=== PATIENT | male | born 1955 | race Caucasian/White ===

== ENCOUNTER → 2019-09-07 15:38 | Outpatient (CLI) | payer OTHER, SELFPAY ==
--- NOTE | ~2019-09-07 | CT_ITS ---
EXAMINATION: CT brain wo con DATE: 09/07/2019 16:06 INDICATION: Left frontal scalp soft tissue mass. Left periorbital swelling. TECHNIQUE: Computed tomography (CT) of the head was performed without intravenous contrast. The mA wa s adjusted according to patient size. Iterative reconstruction technique was employed. The dose-lengt h product was 599.57 mGy-cm. COMPARISON: None FINDINGS: There is no intracranial hemorrhage, acute infarction, or abnormal intracranial mass lesion . The ventricles are normal in size. There is mild mucosal thickening in the ethmoid sinuses. There a re soft tissue masses in the left frontal lateral scalp, left periorbital region, left cheek, and ext raconal inferior and lateral left orbit. For example, a left temporal subcutaneous mass measures 4.5 x 1.1 x 5.0 cm. IMPRESSION: 1. Soft tissue masses in the left frontal lateral scalp, left periorbital region, left cheek, and lef t orbit. The differential diagnosis includes malignancy and fibromatosis. Biopsy is recommended. 2. Normal brain. Reviewed, dictated and finalized at location A. IMPRESSION: 1. Soft tissue masses in the left frontal lateral scalp, left periorbital regio n, left cheek, and left orbit. The differential diagnosis includes malignancy a nd fibromatosis. Biopsy is recommended. 2. Normal brain.
== END ==
PROVIDERS: PCP Internal Medicine; Visit Provider Internal Medicine
DX: M79.89 Other specified soft tissue disorders (principal)
CPT/HCPCS: 70450

== ENCOUNTER 2020-05-29 08:15 | Outpatient (CLI) | payer OTHER, SELFPAY ==
--- NOTE | 2020-07-03 09:34 | WPDHOMESLEEP ---
Sleep Study - Home Unattended Date of Study: 05/29/20 Ordering Provider: ALMAS Garcia Interpreting Physician: Adry Gómez MD [place] [facility] Study Type: Apnea Link Air Height: 1.7 m Weight: 145.603 kg Body Mass Index: 50.3 Neck Circumference (inches): 20 Ranger: 7 Reason for Sleep Study ROSEY Sleep History Macario Martin is a 64 year old man with obstructive sleep apnea diagnosed in 2001, and he has been using CPAP. He constantly snores loudly enough that others complain about it. He does not awaken at night with heartburn, belching or coughing. He occasionally awakens at night feeling short of breath. He occasionally has trouble sleep with a cold. He suddenly gasp for breath occasionally during the night. He occasionally has breathing problems at night reported to him by others. He occasionally sweats excessively at night. He does not notice his heart pounding or beating irregularly night. He occasionally falls asleep during the day, occasionally involuntarily, never while driving. He does not fall asleep during physical effort. He does not have loss of muscle tone with strong emotion. He does not have daytime difficulties due to excessive sleepiness. He does not feel paralyzed on waking or falling asleep. He rarely has vivid dreamlike scenes upon awakening or falling asleep. He is never afraid to go to sleep. He rarely has nightmares. He occasionally remembers his dreams, occasionally has racing thoughts. He does not feel sad depressed or anxious. He really has muscular tension, really notices parts of his body jerking. He rarely kicks at night. He does not have crawling and aching feelings in his legs at night. He rarely has leg pain during the night. He denies morning jaw pain. He rarely grinds his teeth during sleep. He is not bothered by pain during the day. He rarely is awakened by pain at night, rarely wakes up feeling stiff in the morning. He denies waking up with sore or achy muscles or pain in the neck and spine. He has nightmares. Normal bedtime is 9:00 p.m. falling asleep within 5 minutes waking up roughly 4 times at night to either urinate or just reposition. He quickly goes back to sleep. He wakes between 4 and 5:00 a.m.. He estimates 8 hours of sleep at night. We schedule is the same he denies taking naps. A short 10-15 min nap maybe refreshing. Most of the time he feels good in the morning. Habits:: Never smoked. Caffeine - 1 cup a day. Alcohol a couple times a week. 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 This study was scored using CMS guidelines. Sleep Architecture Not applicable for home sleep test. Respiratory Analysis The recording time was 8 hours 8 minutes. Evaluation time 7 hours 56 minutes. The apnea-hypopnea index is 4
[2020-07-03 09:47] VITALS: BMI 50.3
== END 2020-05-29 08:16 | disposition home or self-care (01) ==
PROVIDERS: PCP Internal Medicine; Visit Provider Nurse Practitioner
DX: G47.33 Obstructive sleep apnea (adult) (pediatric) (principal)
CPT/HCPCS: 95806

== ENCOUNTER → 2020-12-22 06:53 | Outpatient (CLI) | payer OTHER, SELFPAY ==
--- NOTE | ~2020-12-22 | XR_ITS ---
EXAMINATION: XR abdomen/kub 1V INDICATION: Personal history of urinary tract calculi TECHNIQUE: Supine view the abdomen is obtained on three radiographs. COMPARISON: 10/20/2010 FINDINGS: Surgical clips in the right mid abdomen are consistent with history of right nephrectomy. N o urinary tract calculi are identified. There is a phlebolith in the right pelvis. The bowel gas lita ramona is normal. The visualized lung bases are clear. IMPRESSION: 1. No urolithiasis identified. Reviewed, dictated and finalized at location B.
== END ==
PROVIDERS: Visit Provider Urology
DX: Z87.442 Personal history of urinary calculi (principal)
CPT/HCPCS: 74018

== ENCOUNTER 2021-03-09 00:55 | Day surgery (SDC) | payer OTHER, SELFPAY ==
[2021-02-25 14:34] VITALS: BMI 46.3
--- NOTE | 2021-03-09 07:47 | WPDANESEPPF ---
Anes - Initial Pre Proc Eval Procedure: Operation Date: 03/09/21 09:30 Proposed Procedures p Screening Colonoscopy - Surinder Obando MD Date/Time: 03/09/21 07:47 Surgeon: Surinder Obando MD Pre Op Diagnosis: neoplasm screening Patient Data Age: 65 Gender: M Height: 1.7 m Weight: 134 kg Allergies Allergy/AdvReac Type Severity Reaction Status Date / Time No Known Allergies Allergy Mild Verified 03/09/21 08:42 Home Medications Medication Instructions Recorded Confirmed Type potassium citrate 10 mEq (1,080 20 meq PO TID tablet 09/03/19 03/09/21 History mg) tablet,extended release clobetasol 0.05 % topical ointment 1 applic TOPICAL BID 14 Days #45 gm 10/08/20 03/09/21 Rx tamsulosin 0.4 mg PO HS 02/25/21 02/25/21 History Patient hx anesthesia problems: none Family hx anesthesia problems: none PMFSH Past Medical History Medical History (Updated 03/09/21 @ 07:49 by Giovanny Woods MD) Angina pectoris Dyslipidemia Kidney stones Mass of face marginal zone lymphoma Morbid obesity with BMI of 45.0-49.9, adult Obstructive sleep apnea (~2001) Family History Family History Mother Patient's mother is in good health Sibling Patient's sister is in good health Patient's brother is in good health Social History Social History Smoking packs per day: 0.25 Smoking cigarettes per day: 5.0 Years smoked: 15 Smoking pack-years: 3.75 Smoking status: Former smoker Tobacco type: cigarettes Second hand tobacco smoke exposure: No Smoking end date: 06/27/79 Alcohol intake: current Drinks per week: 5 Alcohol use details: Beer and Vodk mixed with water Substance use: never Living arrangements: with family 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 identity (if 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 patient): Male Spiritual care concerns: No Agree to blood products: Yes Anes - Eval Final PreProcedure Day of Procedure 03/09/21 07:47 Patient weight: morbidly obese Heart: regular rate and rhythm Lungs: clear to auscultation and normal air movement Airway: Mallampati scale class II Neurological: alert and oriented Last oral intake: >/= 8 hours ASA classification: III Emergent: no Anesthetic plan: proceed Anesthesia type and monitoring: general GIVS Informed Consent: The patient's anesthetic plan and its attendant risks and benefits were discussed with the patient/family/POA. Questions were solicited and answers provided to the satisfaction of the patient/family/POA.
[2021-03-09 08:44] VITALS: BP 146/81; PULSE 56; RESP 20; TEMP 36.3; O2SAT 97; BMI 46.6
[2021-03-09] MEDS: LACTATED RINGERS 1,000 ML 150 ML IV CONT (08:59)
--- NOTE | 2021-03-09 09:30 | PM.HPGS ---
History of Present Illness History of Present Illness Consent: Risks, benefits, and alternatives have been discussed and questions answered. Patient agrees to proceed with procedure. Chief complaint: neoplasm screening Narrative: Macario Martin is a 65 year old male with last colonoscopy over 10 years ago Review of Systems Constitutional: Constitutional: Denies headache(s) and Denies weakness Eyes: Eyes: Denies blurry vision ENT: Reports Normal hearing present, Denies headache(s) and Denies neck pain Cardiovascular: Cardiovascular: Denies chest pain and Denies dyspnea Respiratory: Respiratory: Denies dyspnea Gastrointestinal: Gastrointestinal: Reports no additional gastrointestinal complaints Genitourinary: Genitourinary: Denies dysuria Musculoskeletal: Musculoskeletal: Denies neck pain Integumentary/Breasts: Skin/Breast: Denies dry skin Neurologic: Reports Normal hearing present, Denies headache(s) and Denies weakness Psychiatric: Psychiatric: Denies anxiety Endocrine: Endocrine: Denies change in body appearance Hematologic/Lymphatic: Hematologic/Lymphatic: Denies easy bleeding Allergic/Immunologic: Allergic/Immunologic: Denies urticaria PMFSH Past Medical History Medical History (Updated 03/09/21 @ 07:49 by Giovanny Woods MD) Angina pectoris Dyslipidemia Kidney stones Mass of face marginal zone lymphoma Morbid obesity with BMI of 45.0-49.9, adult Obstructive sleep apnea (~2001) Family History Family History Mother Patient's mother is in good health Sibling Patient's sister is in good health Patient's brother is in good health Social History Social History Smoking packs per day: 0.25 Smoking cigarettes per day: 5.0 Years smoked: 15 Smoking pack-years: 3.75 Smoking status: Former smoker Tobacco type: cigarettes Second hand tobacco smoke exposure: No Smoking end date: 06/27/79 Alcohol intake: current Drinks per week: 5 Alcohol use details: Beer and Vodk mixed with water Substance use: never Living arrangements: with family 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 identity (if 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 patient): Male Spiritual care concerns: No Agree to blood products: Yes Meds Home Medications and Allergies Home Medications Medication Instructions Recorded Confirmed Type potassium citrate 10 mEq (1,080 20 meq PO TID tablet 09/03/19 03/09/21 History mg) tablet,extended release clobetasol 0.05 % topical ointment 1 applic TOPICAL BID 14 Days #45 gm 10/08/20 03/09/21 Rx tamsulosin 0.4 mg PO HS 02/25/21 02/25/21 History Allergies Allergy/AdvReac Type Severity Reaction Status Date / Time No Known Allergies Allergy Mild Verified 03/09/21 08:42 Vital Signs Vital Signs - 24 hr 03/09/21 08:44 Temperature 97.3 F L Pulse Rate 56 L Respiratory Rate 20 Blood Pressure 146/81 H Pulse Oximetry 97 Exam Const: General: comfortable and no acute distress HENMT: General nose exam: Normal nares present Eyes: General: appearance normal, both eyes and all related structures Neck: Neck: no JVD Resp: Auscultation: clear to auscultation bilaterally Cardio: Rate: regular rate Rhythm: regular rhythm GI: Inspection: non-distended GI Palp: Yes Soft to palpation Skin: General skin exam: normal color Neuro: General: gait normal Speech: normal speech Extrem: General: normal to inspection Psych: Mental Status: mental status grossly normal Assessment and Plan Assessment and plan (1) Screening for colon cancer: Code(s): Z12.11 - Encounter for screening for malignant neoplasm of colon Status: Acute Assessment and Plan: colonoscopy
[2021-03-09 09:59] VITALS: BP 118/83; PULSE 58; RESP 28; O2SAT 96
[2021-03-09 10:09] VITALS: BP 117/77; PULSE 55; RESP 27; O2SAT 98
[2021-03-09 10:19] VITALS: BP 126/81; PULSE 52; RESP 22; O2SAT 97
== END 2021-03-09 10:25 | disposition home or self-care (01) ==
PROVIDERS: PCP Internal Medicine; Visit Provider Internal Medicine Gastroenterology
PROC: 0DJD8ZZ Inspection of Lower Intestinal Tract, Via Natural or Artificial Opening Endoscopic (ICD-10-PCS; CPT 45378; principal; 2021-03-09 09:30)
DX: Z12.11 Encounter for screening for malignant neoplasm of colon (principal); D12.2 Benign neoplasm of ascending colon; D12.3 Benign neoplasm of transverse colon; K57.30 Diverticulosis of large intestine without perforation or abscess without bleeding; K64.8 Other hemorrhoids; E78.5 Hyperlipidemia, unspecified; E66.01 Morbid (severe) obesity due to excess calories; G47.33 Obstructive sleep apnea (adult) (pediatric); Z87.442 Personal history of urinary calculi; Z87.891 Personal history of nicotine dependence; Z85.72 Personal history of non-Hodgkin lymphomas
CPT/HCPCS: 45385; 88305; J2001; J2704; J7120

== ENCOUNTER → 2021-08-14 10:24 | Outpatient (CLI) | payer OTHER, SELFPAY ==
--- NOTE | ~2021-08-14 | XR_ITS ---
EXAMINATION: XR knee RT 3V DATE: 08/14/2021 10:59 INDICATION: Right knee pain TECHNIQUE: Three views of the right knee were obtained. COMPARISON: None. FINDINGS: Alignment is normal. No fracture or osteochondral lesion. There is severe narrowing in the medial compartment. Mild patellofemoral and lateral compartmental osteoarthritis are noted. No joint effusion/synovitis. Soft tissues are unremarkable. IMPRESSION: 1. Tricompartmental osteoarthritis, severe in the medial compartment. Reviewed, dictated and finalized at location A. ATION MANAGER
--- NOTE | ~2021-08-14 | XR_ITS ---
EXAMINATION: XR knee LT 3V DATE: 08/14/2021 10:59 INDICATION: Left knee pain TECHNIQUE: Three views of the left knee were obtained. COMPARISON: None. FINDINGS: Alignment is normal. No fracture or osteochondral lesion. There is moderate joint space seferino rowing of the medial compartment. Mild osteoarthritis is noted in the lateral and patellofemoral comp artments. No joint effusion/synovitis. Soft tissues are unremarkable. IMPRESSION: 1. Tricompartmental osteoarthritis, moderate in the medial compartment. Reviewed, dictated and finalized at location A. CE PATROL LIEUTENANT
== END ==
PROVIDERS: PCP Nurse Practitioner; Visit Provider Nurse Practitioner
DX: M25.561 Pain in right knee (principal); M25.562 Pain in left knee; M17.0 Bilateral primary osteoarthritis of knee
CPT/HCPCS: 73562

== ENCOUNTER 2021-10-09 07:20 | Outpatient (CLI) | payer OTHER, SELFPAY ==
--- NOTE | ~2021-10-09 | XR_ITS ---
EXAMINATION: XR chest 2V EXAM DATE: 10/09/2021 07:40 INDICATION: Prostate cancer. TECHNIQUE: Frontal and lateral projections of the chest obtained and reviewed. There is no prior gayle dy for comparison. FINDINGS: Several lung opacities which are most consistent with calcified pleural plaques along the upper lateral chest margins. No confluent consolidation, pneumothorax or pleural effusion suspected. Moderate size thoracic bridging endplate osteophytes, diffuse idiopathic skeletal hyperostosis. Cardi omediastinal silhouette is normal. There are no osteoblastic or osteolytic lesions identified. IMPRESSION: Probable calcified pleural plaques. Reviewed, dictated and finalized at location D.
--- NOTE | ~2021-10-09 | NM_ITS ---
EXAMINATION: NM bone scan whole body DATE: 10/09/2021 13:10 INDICATION: Prostate cancer. TECHNIQUE: 26.8 mCi Tc-99m HDP was administered intravenously. Delayed whole-body scintigrams were o btained. COMPARISON: CT abdomen and pelvis 10/09/2021 FINDINGS: There is joint-centered increased activity in the acromioclavicular joints, sternoclavicula r joints, spine, knees, and right foot, likely osteoarthritis. There is focal increased activity over lying right pelvis on the anterior images without abnormal CT correlate, likely urine contamination. IMPRESSION: 1. No specific evidence of metastatic disease. Reviewed, dictated and finalized at location A.
--- NOTE | ~2021-10-09 | CT_ITS ---
EXAMINATION: CT abdomen pelvis w con INDICATION: Prostate cancer TECHNIQUE: Computed tomographic images of the abdomen and pelvis were obtained after the administrati on of 100 cc of Omnipaque 350 intravenous contrast. The dose-length product (DLP) was 1540.25 mGy-cm. Automated exposure control and iterative reconstruction technique were employed. COMPARISON: 09/02/2016 FINDINGS: The lung bases are clear. The heart size is normal. Calcified pleural plaques are noted whi ch can be seen in the setting of prior asbestos exposure. The liver, spleen, pancreas, gallbladder, a nd adrenal glands are normal. There are surgical changes of right nephrectomy. There is a 3 mm nonobs tructing stone lower pole of the left kidney. There is mild lumbar spondylosis. The left kidney is otherwise unremarkable. No pathologically enlarged abdominal or pelvic lymph nodes are identified. Th ere is no free intraperitoneal gas or evidence of bowel obstruction. Colonic diverticulosis is presen t without evidence of diverticulitis. There is mild lumbar spondylosis. IMPRESSION: 1. No evidence of metastatic disease. Reviewed, dictated and finalized at location A.
[2021-10-09 07:53] LABS: Estimated Glomerular Filt Rate > 60
== END 2021-10-09 07:21 | disposition home or self-care (01) ==
PROVIDERS: PCP Internal Medicine; Visit Provider Urology
DX: C61 Malignant neoplasm of prostate (principal)
CPT/HCPCS: 71046; 74177; 78306; A9561; Q9967

== ENCOUNTER 2021-11-05 09:48 | Outpatient (CLI) | payer OTHER, SELFPAY ==
--- NOTE | ~2021-11-05 | XR_ITS ---
XR chest 2V DATE: 11/05/2021 11:14 INDICATION: Malignant neoplasm of prostate gland TECHNIQUE: PA and lateral views COMPARISON: 10/09/2021 PA and lateral chest FINDINGS: Heart size is within normal range. No hilar or mediastinal enlargement. Bilateral pleural p laques with calcifications suggesting prior asbestos exposure. No pulmonary infiltrate or consolidation, pleural effusion or pulmonary vascular congestion or pneumo thorax. Diffuse idiopathic skeletal hyperostosis of the thoracic spine. 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
--- NOTE | 2021-11-05 10:48 | ECG_ITS ---
Measurements Intervals [place] Rate: 52 P: 50 OK: 241 QRS: -72 QRSD: 161 T: -6 QT: 434 QTc: 407 Interpretive Statements SINUS BRADYCARDIA WITH FIRST DEGREE AV BLOCK LEFT AXIS DEVIATION RIGHT BUNDLE BRANCH BLOCK BASELINE ARTIFACT- I, II, AVR ABNORMAL ECG Electronically Signed On 11-05-2021 11:41:47 CDT by Shilo Galeana D.O.
[2021-11-05 11:17] LABS: Basophils Absolute Auto 0.1 K/mm3 (0.0-0.1); Basophils Percent Auto 0.6 % (0.2-1.2); Eosinophils Absolute Auto 0.1 K/mm3 (0-0.3); Eosinophils Percent Auto 0.7 % (0-4.4); Hematocrit 46.9 % (42.0-52.0); Hemoglobin 16.1 g/dL (14.0-18.0); Immature Granulocyte Absolute 0.05 K/mm3 (0.00-0.031); Immature Granulocyte Percent A 0.5 % (0-0.5); Lymphocytes Percent Auto 22.4 % (18.3-44.2); Mean Corpuscular HGB Conc 34.3 g/dl (32-36); Mean Corpuscular Hemoglobin 31.6 pg (26-34); Mean Corpuscular Volume 92.1 fl (80-100); Mean Platelet Volume 8.8 fl (7.4-10.4); Monocytes Absolute Auto 0.8 K/mm3 (0.1-0.6); Monocytes Percent Auto 8.3 % (2.6-8.5); Neutrophils Absolute Auto 6.3 K/mm3 (1.3-6.7); Neutrophils Percent Auto 67.5 % (45.5-73.1); Platelet Count Result 199 k/mm3 (150-375); Red Blood Count 5.09 M/mm3 (4.6-6.20); Red Cell Distribution Width 12.9 % (11.5-14.5); White Blood Count 9.4 K/mm3 (4.5-10.0)
[2021-11-05 11:21] LABS: Alanine Aminotransferase 21 U/L (6-50); Albumin Level 4.3 g/dL (3.5-5.1); Alkaline Phosphatase 63 U/L (38-126); Anion Gap 6 mmol/L (8-16); Aspartate Amino Transferase 29 U/L (17-59); Bilirubin,Total 0.8 mg/dL (0.2-1.3); Blood Urea Nitrogen 18 mg/dL (9-20); Calcium 8.9 mg/dL (8.4-10.2); Carbon Dioxide 30 mmol/L (22-30); Chloride 102 mmol/L (98-107); Estimated Glomerular Filt Rate > 60; Glucose 96 mg/dL (65-110); Potassium 4.3 mmol/L (3.4-5.0); Sodium 138 mmol/L (137-145)
[2021-11-05 11:29] LABS: INR 1.1; Prothrombin Time 13.9 Seconds (11.1-14.7)
[2021-11-05 11:30] LABS: Partial Thromboplastin Time 32.2 SECONDS (22.3-36.8)
[2021-11-05 11:37] LABS: Appearance Urine Clear (Clear); Bilirubin Urine 1+ (Negative); Blood Urine Negative (Negative); Glucose Urine UA Negative (Negative); Ketones Urine Negative (Negative); Leukocyte Esterase Ur Negative LEU/UL (Negative); Nitrate Urine Negative (Negative); Protein Urine Negative (Negative); Specific Grav Ur >= 1.030 (1.001-1.035)
[2021-11-05 11:38] LABS: Add Urine Microscopic? YES; Color Urine Dark Yellow (Yellow)
[2021-11-05 11:54] LABS: Mucus Urine Rare /lpf; RBC Urine 0-2 /hpf (0-2); Squamous Epithelial Cell Urine Rare /hpf (Few); WBC Urine 0-3 /hpf
== END 2021-11-05 09:49 | disposition home or self-care (01) ==
LOC: ANHSURGERY 09:51
PROVIDERS: PCP Internal Medicine; Visit Provider Urology
DX: C61 Malignant neoplasm of prostate (principal); Z01.818 Encounter for other preprocedural examination; M48.14 Ankylosing hyperostosis [Forestier], thoracic region; I44.0 Atrioventricular block, first degree; I45.10 Unspecified right bundle-branch block
CPT/HCPCS: 36415; 71046; 80053; 81001; 85025; 85610; 85730; 93005

== ENCOUNTER 2021-11-19 00:55 | Day surgery (SDC) | payer OTHER, SELFPAY ==
[2021-11-05 09:57] VITALS: BMI 47.4
--- NOTE | 2021-11-05 10:22 | PC.NURSE ---
Report to the Outpatient Waiting Room, entrance under the green pavilion located off [facility], at time __0600 on date _11/19/21 . OR Time: 729 . - You and your visitor will be asked a series of questions to screen for COVID 19 for your protection. - Only one visitor is allowed at this time. - The patient visitor is requested to leave or wait in car when not with patient. - A mask is required within the hospital. Patients may have clear liquids (water, carbonated beverages, clear teas, apple juice) until 3 hours prior to surgery with a maximum of 20 ounces. - No food from midnight until time of surgery - Infants may have breast milk until 4 hours before surgery, infant formula 6 hours prior to surgery. - Children will be allowed to drink immediately following surgery. If applicable, please bring a bottle or sippy cup to assist with drinking. Juice, water, soda, and popsicles are readily available. For infants on formula, please bring formula the day of surgery. Pacifiers are allowed. Take the following medications with a SIP of water the morning of surgery: ___NONE Medications to discontinue per physician __NONE Date to take last dose Please no make-up, nail afghan, hairspray, perfume, deodorant, or body powder the day of surgery. No jewelry (including any body piercings) or valuables the day of surgery, leave them at home. Please take a shower or bath the night before, or the morning of, surgery with an antibacterial soap. Wear comfortable, loose fitting clothing. Children are encouraged to wear pajamas. - Jewelry must be removed prior to entering the operating room. Rings and piercings that are not removed may be cut off. - The hospital will not accept responsibility for valuables. - Please leave all valuables, including medications, at home the day of surgery. BOWEL PREP PER DR VIDALES If you are going home after surgery, a licensed telephone directory distributor driver must drive you home. - NO public transportation without another adult. - We recommend that an adult stay with you for 24 hours following discharge. - We also recommend that you do not drive, make important decision, drink alcoholic beverages, or take any drugs that were not prescribed by your health care provider for at least 24 hours after your discharge time. . Follow any additional instructions given to you from your surgeon. If you or anyone in your household have experienced Covid symptoms in the past week, please notify your surgeon or the nurse liaison at the phone number below for possible testing. VERBAL AND WRITTEN instructions given to _PATIENT and asked if any additional questions and then verbalized understanding. Patient advised to call surgeon office or pre surgery nurse liaison [phone] if any additional questions.
[2021-11-05 10:48] VITALS: BP 142/77; PULSE 66; RESP 18; TEMP 36.7; O2SAT 98
--- NOTE | 2021-11-10 14:22 | PM.IMHP ---
H&P: HPI History of Present Illness Date/Time: 11/10/21 14:22 66-year-old gentleman recently referred with a PSA of 6.1. Prostate ultrasound and biopsy revealed a 35.3 cc prostate with 6 of 12 cores demonstrating Batsheva 6, 3+4=7 and 4+3=7 , some of which had intraductal components.. This is consistent with an end cc an unfavorable intermediate risk prostate cancer with intraductal components. Staging CT scan of the abdomen and pelvis, bone scan and chest x-ray showed no evidence of metastatic disease. I had a lengthy discussion with the patient regarding his therapeutic options for this prostate cancer which is essentially high risk because of the intraductal components. He has opted for definitive intervention and elected to proceed with a robotic prostatectomy he is aware that, because of his body size and habitus, we may not be able to proceed because the extreme Trendelenburg positioning necessary for this procedure. He is aware of additional risk including, but not limited to, adverse cardiopulmonary events, failure to control his cancer, need for adjuvant therapy, rectal injury, erectile dysfunction and urinary incontinence. Chief Complaint: Prostate cancer Review of Systems Cardiovascular: Cardiovascular: Denies chest pain, Denies lightheadedness, Denies palpitations and Denies dyspnea Respiratory: Respiratory: Denies dyspnea Gastrointestinal: Gastrointestinal: Denies diarrhea, Denies nausea and Denies vomiting Genitourinary: Genitourinary: Denies hematuria and Denies dysuria Endocrine: Endocrine: Denies palpitations PMF Past Medical History Medical History Angina pectoris Dyslipidemia Kidney stones Mass of face marginal zone lymphoma Morbid obesity with BMI of 45.0-49.9, adult Obstructive sleep apnea (~2001) Surgical History Surgical History History of right nephrectomy 2001 Family History Family History Mother Patient's mother is in good health Sibling Patient's sister is in good health Patient's brother is in good health Social History Social History Smoking packs per day: 0.25 Smoking cigarettes per day: 5.0 Years smoked: 15 Smoking pack-years: 3.75 Smoking status: Former smoker Tobacco type: cigarettes Second hand tobacco smoke exposure: No Smoking end date: 06/27/79 Alcohol intake: current Drinks per week: 5 Alcohol use details: Beer and Vodk mixed with water Substance use: never Substance use type: does not use 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 identity (if 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 patient): Male Spiritual care concerns: No Agree to blood products: Yes Meds Home Medications and Allergies Home Medications Medication Instructions Recorded Confirmed Type potassium citrate 10 mEq (1,080 20 meq PO TID tablet 09/03/19 11/05/21 History mg) tablet,extended release tamsulosin 0.4 mg PO HS 02/25/21 11/05/21 History clobetasol 0.05 % topical ointment 1 applic TOPICAL BID 14 Days #45 gm 04/20/21 11/05/21 Rx acetaminophen 650 mg 650 mg PO Q12H PRN 08/05/21 11/05/21 History tablet,extended release Allergies Allergy/AdvReac Type Severity Reaction Status Date / Time No Known Allergies Allergy Mild Verified 11/05/21 09:58 Exam Const: General: no acute distress; No healthy appearing Nutritional Appearance: body habitus not average and obese Resp: Effort & Inspection: normal respiratory effort GI: Inspection: non-distended GI Palp: No abdominal tenderness and No Guarding due to palpation present (GI) Auscultation: normal bowel sounds Assessment and Plan Assessment and plan (1) Prostate cancer: Code(s): C61 - Malignant neoplasm of prostate Status: Acute Additional Bartolo
[2021-11-19] VITALS (18 sets, daily range): BP systolic 114–154; BP diastolic 67–86; PULSE 63–91; RESP 12–23; TEMP 36–36.4; O2SAT 93–100
[2021-11-19] MEDS: LACTATED RINGERS 1,000 ML 30 ML IV CONT ×3 (06:25→13:16)
--- NOTE | 2021-11-19 06:29 | WPDHPUPDATE1 ---
History and Physical Update Update Date/Time: 11/19/21 06:29 History and Physical has been reviewed, including an updated exam of the patient. There are NO changes in the patient's condition. Risks, benefits, and alternatives have been discussed and questions answered. Patient agrees to proceed with procedure.
--- NOTE | 2021-11-19 06:54 | WPDANESEPPF ---
Anes - Initial Pre Proc Eval Procedure: Operation Date: 11/19/21 07:30 Proposed Procedures p Robotic Assisted Radical Prostatectomy with Bilateral Pelvic Lymph Node Dissection - Winston Cardona MD Date/Time: 11/19/21 06:54 Surgeon: Winston Cardona MD Pre Op Diagnosis: prostate cancer Patient Data Age: 66 Gender: M Height: 1.69 m Weight: 134.2 kg Last Vital Signs Temp 36.1 C L 11/19/21 06:02 Pulse 70 11/19/21 06:02 Resp 20 11/19/21 06:02 BP 137/76 11/19/21 06:02 Pulse Ox 96 11/19/21 06:02 O2 Del Method Room Air 11/19/21 06:02 Allergies Allergy/AdvReac Type Severity Reaction Status Date / Time No Known Allergies Allergy Mild Verified 11/05/21 09:58 Home Medications Medication Instructions Recorded Confirmed Type potassium citrate 10 mEq (1,080 20 meq PO TID 09/03/19 11/19/21 History mg) tablet,extended release tamsulosin 0.4 mg capsule 0.4 mg PO HS 02/25/21 11/19/21 History clobetasol 0.05 % topical ointment 1 applic topical BID 2 weeks #45 04/20/21 11/19/21 Rx grams acetaminophen 650 mg 650 mg PO Q12H PRN Pain 08/05/21 11/19/21 History tablet,extended release (Tylenol Arthritis Pain) Patient hx anesthesia problems: none Family hx anesthesia problems: none Results Review: All pre-operative results and documents have been reviewed as part of the pre-operative evaluation. [facility] Past Medical History Medical History (Updated 11/10/21 @ 14:26 by Winston Cardona MD) Angina pectoris Dyslipidemia Kidney stones Mass of face marginal zone lymphoma Morbid obesity with BMI of 45.0-49.9, adult Obstructive sleep apnea (~2001) Surgical History Surgical History (Updated 11/19/21 @ 06:55 by Doug Sarmiento MD) H/O lithotripsy History of right nephrectomy 2001 Family History Family History Mother Patient's mother is in good health Sibling Patient's sister is in good health Patient's brother is in good health Social History Social History Smoking packs per day: 0.25 Smoking cigarettes per day: 5.0 Years smoked: 15 Smoking pack-years: 3.75 Smoking status: Former smoker Tobacco type: cigarettes Second hand tobacco smoke exposure: No Smoking end date: 06/27/79 Alcohol intake: current Drinks per week: 5 Alcohol use details: Beer and Vodk mixed with water Substance use: never Substance use type: does not use Living arrangements: with family Additional occupation/education comments: [employer] Gender identity (if 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 patient): Male Spiritual care concerns: No Agree to blood products: Yes Anes - Eval Final PreProcedure Day of Procedure 11/19/21 06:54 Patient weight: morbidly obese Heart: regular rate and rhythm Lungs: clear to auscultation Airway: Mallampati scale class III and other (upper denture) Neurological: alert and oriented ASA classification: III Anesthetic plan: proceed Anesthesia type and monitoring: general ETT and standard monitoring Results Review: All pre-operative results and documents have been reviewed as part of the pre-operative evaluation. Informed Consent: The patient's anesthetic plan and its attendant risks and benefits were discussed with the patient/family/POA. Questions were solicited and answers provided to the satisfaction of the patient/family/POA.
--- NOTE | 2021-11-19 09:06 | SUR.OPER ---
Per Preop Type and screen, Lab requests 5 additional lavender top vials for further labs. Unable to collect at this time due to extensive surgical positioning. PACU notified of labs needing collected and to collect once patient reaches their area post op.
--- NOTE | 2021-11-19 11:37 | W.PM.PROC2 ---
Procedure Note - Detailed Date of Procedure 11/19/21 Pre-op Diagnosis Prostate cancer Post-op Diagnosis Same Procedure Performed Robotic assisted radical prostatectomy with bilateral pelvic lymphadenectomy Surgeon Winston Cardona MD [employer]ou[employer] OLAMIDE Saucedo Description of Procedure The patient was brought to the operative suite, where he was prepped and draped in routine sterile fashion while in a dorsal lithotomy, deep Trendelenburg position. A infraumbilical 5 mm trocar was placed after insufflation of the abdomen with a Veress needle. Three robotic ports were then placed under direct vision. Two of these were placed in the right lower quadrant - 10 cm and 20 cm lateral to, and in line with, the umbilicus. A third robotic trocar was placed 10 cm to the left of the umbilicus, and 20 cm to the left of the umbilicus, a 12 mm standard laparoscopic trocar was placed to be used as an esl instructional assistant port. Lastly, a 5 mm trocar was placed in the left upper quadrant midway between the umbilicus and the left robotic trocar. Attention was then turned to the prostatectomy. I opted for a posterior approach in this patient. An incision was made in the parietal peritoneum along the posterior bladder/posterior prostate about 2 cm above the reflection of the peritoneum over the anterior rectum. The seminal vesicles and vas deferens were immediately identified. Dissection is undertaken in a fashion so as to avoid electrocautery as much as possible, particularly near the tips of the seminal vesicles. Dissection was also carried out in the midline so as to avoid any encounters with the ureters. The vas deferens and the seminal vesicles were dissected in their entirety to the base of the prostate. The plane anterior to Denoviller's fascia, anterior to the rectum and posterior to the prostate was then developed. I then dropped the bladder by incising the anterior parietal peritoneum just lateral to the median umbilical ligaments bilaterally. The bladder was dropped from the anterior abdominal and pelvic wall. The endopelvic fascia was identified and incised bilaterally, allowing for dissection of the posterior-lateral aspect of the prostate. The puboprostatic ligaments were transected near their origin from the posterior pubic ramus. This posterior lateral dissection of the prostate is also undertaken in a fashion so as to avoid electrocautery as much as possible. The dorsal vein of the penis is then secured with an 0 -Vicryl ligature. Attention is then turned to the bladder neck. The anterior bladder neck is incised at the vesico-prostatic junction. The previously placed urethral catheter was drawn through the urethrotomy. A very small bladder neck was maintained throughout the remainder of this dissection. The posterior bladder neck was incised in a fashion so as to avoid any injury to the ureteral orifices. Again, the small aperture of the bladder neck was maintained. The previously dissected vas deferens and the seminal vesicles were brought through the posterior bladder neck incision. The lateral prostatic pedicles were then carefully dissected from the lateral aspect of the prostate bilaterally. The prostatic pedicles were secured with Weck clips and transected. The neurovascular bundles were carefully dissected from the posterior-lateral aspect of the prostate. The dorsal vein of the penis was incised with electrocautery. Using cold scissors, the urethra was incised. After withdrawing the previously placed urethral catheter, the posterior urethra was sharply incised, as was the rectalurethralis muscle. Attention was then turned to an extended bilateral pelvic lymphadenectomy. The limits of this dissection were similar bilaterally. Specifically, the limits were the bifurcation of the common iliac vein proximally, the inguinal ligament distally, the obturator nerve posteriorly and the anterior aspect to the external iliac artery laterally. This dissection was
[2021-11-19] MEDS: fentaNYL CITRATE INJ (*CRX) 100 MCG/2 ML VIAL 25 MCG IV PUSH ×8 (12:04→12:47)
--- NOTE | 2021-11-19 12:31 | SUR.PHASEI ---
1230: Simple mask removed.
[2021-11-19] MEDS: MEPERIDINE HCL INJ (*CRX) 50 MG/ML AMPUL 12.5 MG IV PUSH (13:11)
--- NOTE | 2021-11-19 13:53 | ADMGEN ---
This patient, Macario Martin, was admitted to Medical Room 246-01. Patient/family oriented to hospital policies and general routines including ID bracelet, bed and alarms, visiting hours, pain management, procedures, bathroom and other care routines, personal items, smoking policy, room service/diet, and visiting hours. Information on how to activate the Rapid Response Team has been discussed. Patient/Family are encouraged to report perceived risks to care and to ask questions if they do not understand what they are told or what they should do.
[2021-11-19] MEDS: LACTATED RINGERS 1,000 ML 125 ML IV CONT ×2 (14:23→22:55)
[2021-11-19 15:16] LABS: Potassium 3.9 mmol/L (3.4-5.0)
[2021-11-19] MEDS: KETOROLAC 15 MG/ML VIAL (*BKC) IV PUSH (15:28)
[2021-11-19] MEDS: POTASSIUM CITRATE 5 MEQ TAB CR 20 MEQ PO (16:33)
[2021-11-20 00:15] VITALS: RESP 19; O2SAT 95
[2021-11-20 02:36] VITALS: RESP 18; O2SAT 96
[2021-11-20 03:30] VITALS: BP 105/64; PULSE 55; RESP 20; TEMP 36.2; O2SAT 96
[2021-11-20 05:49] LABS: Hematocrit 37.6 % (42.0-52.0)
[2021-11-20 06:04] LABS: Anion Gap 6 mmol/L (8-16); Blood Urea Nitrogen 18 mg/dL (9-20); Calcium 8.3 mg/dL (8.4-10.2); Carbon Dioxide 26 mmol/L (22-30); Chloride 104 mmol/L (98-107); Estimated CRCL calculation 83 ml/min; Estimated Glomerular Filt Rate > 60; Glucose 106 mg/dL (65-110); Potassium 4.3 mmol/L (3.4-5.0); Sodium 136 mmol/L (137-145)
--- NOTE | 2021-11-20 06:55 | WPDUROPN2 ---
Progress Note: A&P Assessment and Plan (1) Prostate cancer: Code(s): C61 - Malignant neoplasm of prostate Status: Acute Assessment and Plan: Doing very well POD #1 - comfortable, ambulating and tolerating solid food. Home today with plans for cystogram/catheter removal in 1-week. Subjective Subjective Date/Time Seen: 11/20/21 06:55 Post Op day: 1 Principal diagnosis: Prostate cancer Interval history: Comfortable and toleratind diet Review of Systems Cardiovascular: Cardiovascular: Denies chest pain, Denies lightheadedness, Denies palpitations and Denies dyspnea Respiratory: Respiratory: Denies dyspnea Gastrointestinal: Gastrointestinal: Denies diarrhea, Denies nausea and Denies vomiting Genitourinary: Genitourinary: Denies hematuria and Denies dysuria Endocrine: Endocrine: Denies palpitations Exam Const: General: no acute distress Resp: Effort & Inspection: normal respiratory effort GI: Inspection: non-distended GI Palp: No abdominal tenderness and No Guarding due to palpation present (GI) Auscultation: normal bowel sounds Objective Data Vital Signs Vital Signs: Vital Signs - 24 hr 11/19/21 11:50 11/19/21 12:05 11/19/21 12:20 Temperature 97.1 F L Pulse Rate 91 80 75 Respiratory Rate 12 19 18 Blood Pressure 121/86 133/76 133/76 Pulse Oximetry 100 100 100 Oxygen Delivery Simple Face Mask Simple Face Mask Simple Face Mask Oxygen Flow Rate 10 10 10 11/19/21 12:35 11/19/21 12:50 11/19/21 13:05 Temperature 97.0 F L 97.2 F L Pulse Rate 76 71 75 Respiratory Rate 12 16 14 Blood Pressure 133/76 131/76 120/75 Pulse Oximetry 96 99 96 Oxygen Delivery Room Air Room Air Room Air Oxygen Flow Rate 11/19/21 13:20 11/19/21 13:35 11/19/21 13:55 Temperature 96.9 F L 97.5 F L Pulse Rate 74 73 77 Respiratory Rate 12 12 14 Blood Pressure 135/75 127/70 138/70 Pulse Oximetry 96 97 95 Oxygen Delivery Room Air Room Air Oxygen Flow Rate 11/19/21 14:10 11/19/21 14:40 11/19/21 15:40 Temperature 97.4 F L 97.3 F L 97.2 F L Pulse Rate 73 74 86 Respiratory Rate 16 16 20 Blood Pressure 154/81 H 132/76 150/80 H Pulse Oximetry 94 95 98 Oxygen Delivery Oxygen Flow Rate 11/19/21 20:22 11/19/21 19:30 11/19/21 21:39 Temperature 96.8 F L Pulse Rate 75 75 Respiratory Rate 20 20 Blood Pressure 131/70 Pulse Oximetry 93 95 93 Oxygen Delivery Room Air Room Air Oxygen Flow Rate 11/19/21 22:58 11/19/21 23:30 11/20/21 00:15 Temperature 97.0 F L Pulse Rate 68 63 Respiratory Rate 23 H 20 19 Blood Pressure 114/67 Pulse Oximetry 94 97 95 Oxygen Delivery CPAP CPAP Oxygen Flow Rate 11/20/21 02:36 11/20/21 03:30 Temperature 97.1 F L Pulse Rate 55 L Respiratory Rate 18 20 Blood Pressure 105/64 Pulse Oximetry 96 96 Oxygen Delivery CPAP Oxygen Flow Rate Intake/Output Intake/Output: Intake & Output 11/17/21 11/18/21 11/19/21 11/20/21 23:59 23:59 23:59 23:59 Intake Total 2850 490 Output Total 60 500 Balance 2790 -10 Meds/Results Medications: Active Medications Generic Name Dose Route Start Last Admin Trade Name Freq PRN Reason Stop Dose Admin Hyoscyamine 0.125 mg 11/19/21 13:45 Hyoscyamine Sulfate 0.125 Mg Tablet SUBLINGUAL Q4H PRN Bladder Spasm Lactated Ringer's 1,000 mls @ 125 mls/hr 11/19/21 13:45 11/19/21 22:55 Lr - Lactated Ringers Iv IV CONT 125 mls/hr .Q8H JEAN Administration Acetaminophen 1,000 mg in 100 mls @ 400 mls/hr 11/19/21 15:00 11/20/21 03:22 Ofirmev 1,000 Mg Ivpb IVPB 11/20/21 14:59 Infused Q6H JEAN Infusion Ketorolac Tromethamine 15 mg 11/19/21 13:45 11/19/21 15:28 Ketorolac 15 Mg/Ml Vial (*Bkc) IV PUSH 11/20/21 13:44 15 mg Q6H PRN Administration Pain Rated 4-6 Levofloxacin 500 mg 11/20/21 09:00 Levofloxacin 500 Mg Tablet PO DAILY JEAN Naloxone HCl 0.1 mg 11/19/21 13:45 Naloxone Hcl 0.4 Mg/Ml Vial IV PUSH Q2M PRN
--- NOTE | 2021-11-20 07:01 | PM.DS ---
DS: Admitting Diagnosis Discharge Date 11/20/2021 Admitting Diagnosis Prostate cancer DS: Discharge Diagnosis Discharge Diagnosis Plan Follow-up 1-week DS: Summary Hospital Course Hospital Course: This patient was admitted on the morning of his planned robotic prostatectomy. This procedure was uneventful, as was his postoperative course. By the evening of the procedure he was sitting at the bedside in tolerating a liquid diet. The following morning he was ambulating freely and tolerating regular food. His catheter drainage remained essentially clear throughout. His postoperative hemoglobin and serum creatinine were unremarkable. At the time of discharge he has been instructed in appropriate care for his Aleman catheter with both a leg bag and bedside bag. He will be discharged with plans to follow-up in 1 week with a cystogram. Time Spent with Patient Time attestation: Total time spent providing and/or coordinating discharge services: DS: Data Data Completed and Pending Pending studies at discharge: Pending at discharge 11/19/21 11:06 Surgical [PTH] Routine Labs on day of discharge: Labs from last 24 hours 11/20/21 11/20/21 11/19/21 05:21 05:21 14:48 Hgb 13.0 L D Hct 37.6 L Sodium 136 L Potassium 4.3 3.9 Chloride 104 Carbon Dioxide 26 Anion Gap 6 L BUN 18 Creatinine 1.00 Estim Creat Clear Calc 83 Estimated GFR > 60 Glucose 106 Calcium 8.3 L Blood Type Antibody Screen Antibody Identification Antigen Identification RUEL, IgG Interpret RUEL, Poly Interpret RUEL, Complement Interp 11/19/21 06:27 Hgb Hct Sodium Potassium Chloride Carbon Dioxide Anion Gap BUN Creatinine Estim Creat Clear Calc Estimated GFR Glucose Calcium Blood Type A Positive Antibody Screen Positive Antibody Identification Inconclusive Antigen Identification Cancelled RUEL, IgG Interpret TNP RUEL, Poly Interpret Negative RUEL, Complement Interp TNP Discharge Plan Discharge Patient Disposition: Home, Self-Care Discharge Instructions: 1) Aleman catheter -> leg bag / bedside bag at night. 2) No lifting/straining >15lbs. x3 weeks. 3) No driving x1-week. 4) Resume normal, pre-operative diet. 5) My office will contact regarding follow-up in 1-week with cystogram. Stand Alone Forms: General Discharge Instructions Discharge Orders: Discharge Order (Routine); Ordered 11/20/21 Ordered By: Winston Cardona Discharge Medications: New hydrocodone-acetaminophen 5-325 mg tablet 1 - 2 tablet PO Q6H PRN (Reason: pain) Qty: 30 0RF ciprofloxacin HCl 500 mg tablet 500 mg PO Q12H Qty: 10 0RF docusate sodium [Colace] 100 mg capsule 100 mg PO DAILY Qty: 30 0RF hyoscyamine sulfate 0.125 mg tablet 0.125 mg PO Q6H PRN (Reason: bladder spasms) Qty: 20 2RF oxybutynin chloride 5 mg tablet 5 mg PO TID PRN (Reason: bladder spasms) Qty: 20 0RF Continued potassium citrate 10 mEq (1,080 mg) tablet extended release 20 meq PO TID clobetasol 0.05 % ointment 1 applic TOPICAL BID 14 Days Qty: 45 1RF Rx Instructions: Use for two weeks at a time acetaminophen [Tylenol Arthritis Pain] 650 mg tablet extended release 650 mg PO Q12H PRN (Reason: Pain) Discontinued tamsulosin 0.4 mg capsule 0.4 mg PO HS
[2021-11-20] MEDS: levoFLOXacin 500 MG TABLET PO (08:50)
[2021-11-20] MEDS: POTASSIUM CITRATE 5 MEQ TAB CR 20 MEQ PO (08:51)
[2021-11-20 08:53] VITALS: RESP 20; O2SAT 96
--- NOTE | 2021-11-20 09:14 | WPDANESPN ---
Anes - Prog Note Post-Op Date/Time: 11/20/21 09:14 Cardiovascular status: normal Respiratory status: normal Airway patency: baseline Mental status: baseline Post-Op hydration status: normal Vital Signs: Last Vital Signs Temp 36.2 C L 11/20/21 03:30 Pulse 55 L 11/20/21 03:30 Resp 20 11/20/21 08:53 BP 105/64 11/20/21 03:30 Pulse Ox 96 11/20/21 08:53 O2 Del Method Room Air 11/20/21 08:53 O2 Flow Rate 10 11/19/21 12:20 Pain Score (VAS): 07/06 I/O: Intake & Output 11/19/21 11/20/21 11/20/21 23:59 07:59 15:59 Intake Total 1800 1490 596 Output Total 500 Balance 1800 990 596 Laboratory Tests 11/20/21 05:21 11/20/21 05:21 11/19/21 11/19/21 11/20/21 06:27 14:48 05:21 Hgb 13.0 L D Hct 37.6 L Sodium Potassium 3.9 Chloride Carbon Dioxide Anion Gap BUN Creatinine Estim Creat Clear Calc Estimated GFR Glucose Calcium Antibody Identification Inconclusive Antigen Identification Cancelled RUEL, IgG Interpret TNP RUEL, Complement Interp TNP 11/20/21 05:21 Hgb Hct Sodium 136 L Potassium 4.3 Chloride 104 Carbon Dioxide 26 Anion Gap 6 L BUN 18 Creatinine 1.00 Estim Creat Clear Calc 83 Estimated GFR > 60 Glucose 106 Calcium 8.3 L Antibody Identification Antigen Identification RUEL, IgG Interpret RUEL, Complement Interp Post-procedural complaints: none Patient Feedback: Patient satisfied with anesthetic care.
== END 2021-11-20 11:00 | disposition home or self-care (01) ==
LOC: ANHSURGERY 05:50 → ANH2MED 13:48
PROVIDERS: Nurse Practitioner Adult Health; PCP Internal Medicine; Visit Provider Urology
PROC: 0VT04ZZ Resection of Prostate, Percutaneous Endoscopic Approach (ICD-10-PCS; CPT 55867; principal; 2021-11-19 07:30)
DX: C61 Malignant neoplasm of prostate (principal); E78.5 Hyperlipidemia, unspecified; G47.33 Obstructive sleep apnea (adult) (pediatric); E66.01 Morbid (severe) obesity due to excess calories; Z68.42 Body mass index [BMI] 45.0-49.9, adult; Z90.5 Acquired absence of kidney; Z87.891 Personal history of nicotine dependence
CPT/HCPCS: 55866; 38571; 36415; 71046; 80048; 80053; 81001; 81479; 84132; 85014; 85018; 85025; 85610; 85730; 86850; 86860; 86870; 86880; 86900; 86901; 86902; 86971; 88305; 88309; 93005; A9270; J0131; J0690; J1100; J1885; J2175; J2405; J2704; J2710; J3010; J7030; J7120; Q9968

== ENCOUNTER 2021-11-27 12:22 | Outpatient (CLI) | payer OTHER, SELFPAY ==
--- NOTE | ~2021-11-27 | XR_ITS ---
EXAMINATION: CYSTOGRAM DATE: 11/27/2021 13:21 INDICATION: Prostate cancer follow-up TECHNIQUE: Initial corner trimmer operator radiograph of the pelvis was performed. There was retrograde administration of Omnipaque 350 mixed with saline contrast into patient's existing goodson catheter. Fluoroscopic sade ges of the pelvis were obtained. A post-void image was also performed. FINDINGS: There is normal filling of the bladder which is mildly trabeculated. No evidence for bladde r extravasation or vesicoureteral reflux. No intraluminal filling defects are seen. IMPRESSION: 1. Unremarkable cystogram without evidence for bladder extravasation. Reviewed, dictated and finalized at location A.
== END 2021-11-27 12:23 | disposition home or self-care (01) ==
PROVIDERS: PCP Internal Medicine; Visit Provider Urology
DX: C61 Malignant neoplasm of prostate (principal)
CPT/HCPCS: 51600; 74430; Q9967

== ENCOUNTER 2022-07-27 07:54 | Outpatient (CLI) | payer OTHER, SELFPAY ==
--- NOTE | 2022-07-27 08:55 | ECG_ITS ---
Measurements Intervals [place] Rate: 56 P: -9 OR: 218 QRS: -77 QRSD: 175 T: -8 QT: 436 QTc: 423 Interpretive Statements SINUS BRADYCARDIA WITH FIRST DEGREE AV BLOCK RIGHT BUNDLE BRANCH BLOCK LEFT ANTERIOR FASCICULAR BLOCK ABNORMAL ECG COMPARED TO ECG 11/05/2021 11:02:37 NO SIGNIFICANT CHANGES Electronically Signed On 07-27-2022 9:14:57 ADMISSIONS REPRESENTATIVE by Shilo Galeana D.O.
== END 2022-07-27 07:55 | disposition home or self-care (01) ==
PROVIDERS: PCP Family Medicine; Visit Provider Orthopaedic Surgery
DX: M17.11 Unilateral primary osteoarthritis, right knee (principal); R00.1 Bradycardia, unspecified; I45.2 Bifascicular block; I44.0 Atrioventricular block, first degree
CPT/HCPCS: 93005

== ENCOUNTER 2023-02-07 09:59 | Outpatient (CLI) | payer OTHER, SELFPAY ==
[2023-02-07 11:53] LABS: Basophils Absolute Auto 0.1 K/mm3 (0.0-0.1); Basophils Percent Auto 0.7 % (0.2-1.2); Eosinophils Absolute Auto 0.1 K/mm3 (0-0.3); Eosinophils Percent Auto 1.4 % (0-4.4); Hematocrit 44.6 % (42.0-52.0); Hemoglobin 15.6 g/dL (14.0-18.0); Immature Granulocyte Absolute 0.03 K/mm3 (0.00-0.031); Immature Granulocyte Percent A 0.4 % (0-0.5); Lymphocytes Absolute Auto 1.36 K/mm3 (0.9-3.2); Lymphocytes Percent Auto 18.7 % (18.3-44.2); Mean Corpuscular Hemoglobin 31.5 pg (26-34); Mean Corpuscular Volume 90.1 fl (80-100); Mean Platelet Volume 9.1 fl (7.4-10.4); Monocytes Absolute Auto 0.5 K/mm3 (0.1-0.6); Monocytes Percent Auto 7.4 % (2.6-8.5); Neutrophils Absolute Auto 5.2 K/mm3 (1.3-6.7); Neutrophils Percent Auto 71.4 % (45.5-73.1); Platelet Count Result 186 k/mm3 (150-375); Red Blood Count 4.95 M/mm3 (4.6-6.20); Red Cell Distribution Width 12.8 % (11.5-14.5); White Blood Count 7.3 K/mm3 (4.5-10.0)
[2023-02-07 11:58] LABS: Appearance Urine Clear (Clear); Bilirubin Urine Negative (Negative); Blood Urine Negative (Negative); Color Urine Yellow (Yellow); Glucose Urine UA Negative (Negative); Ketones Urine 1+ mg/dL (Negative); Leukocyte Esterase Ur Negative LEU/UL (Negative); Nitrate Urine Negative (Negative); Protein Urine Negative (Negative); Specific Grav Ur 1.019 (1.001-1.035); pH Urine 6.5 (5.0-9.0)
[2023-02-07 12:00] LABS: Urine Cotinine NEGATIVE
[2023-02-07 12:01] LABS: Add Urine Microscopic? NO
[2023-02-07 12:03] LABS: Albumin Level 4.3 g/dL (3.5-5.1); Anion Gap 5 mmol/L (8-16); Blood Urea Nitrogen 13 mg/dL (9-20); Calcium 9.2 mg/dL (8.4-10.2); Carbon Dioxide 28 mmol/L (22-30); Chloride 101 mmol/L (98-107); Estimated Glomerular Filt Rate > 60; Glucose 89 mg/dL (65-110); Potassium 4.1 mmol/L (3.4-5.0); Sodium 134 mmol/L (137-145)
[2023-02-07 12:05] LABS: INR 1.1; Prothrombin Time 14.6 Seconds (11.1-14.7)
[2023-02-07 12:16] LABS: Hemoglobin A1C 4.7 % (<5.7)
== END 2023-02-07 10:00 | disposition home or self-care (01) ==
LOC: ANHSURGERY 10:05
PROVIDERS: PCP Family Medicine; Visit Provider Orthopaedic Surgery
DX: Z01.818 Encounter for other preprocedural examination (principal); M17.11 Unilateral primary osteoarthritis, right knee
CPT/HCPCS: 80048; 80307; 81003; 82040; 83036; 85025; 85610; 85730; 87081

== ENCOUNTER 2023-02-23 00:30 | Day surgery (SDC) | payer OTHER, SELFPAY ==
[2023-02-07 10:10] VITALS: BMI 38.7
--- NOTE | 2023-02-07 10:38 | PC.NURSE ---
Report to the Outpatient Waiting Room, entrance under the green pavilion located off [facility], at time __0600 on date _02/23/23 . Planned Procedure Time: ___729 . Time changes happen often and if your time is changed the preop area will call you the afternoon before. - You and your visitor will be asked to self-screen and do not enter if you have any COVID symptoms. - A mask is optional within the hospital at this time. Patients may have clear liquids (water, carbonated beverages, clear teas, apple juice) until 3 hours prior to surgery with a maximum of 20 ounces. - No food from midnight until time of surgery - Infants may have breast milk until 4 hours before surgery, infant formula 6 hours prior to surgery. - Children will be allowed to drink immediately following surgery. If applicable, please bring a bottle or sippy cup to assist with drinking. Juice, water, soda, and popsicles are readily available. For infants on formula, please bring formula the day of surgery. Pacifiers are allowed. Take the following medications with a SIP of water the morning of surgery: ___NONE DO NOT STOP ANY OF YOUR OTHER PRESCRIPTION MEDICATIONS PRIOR TO SURGERY ?EXCEPT THE FOLLOWING Medications to discontinue per physician ____PT STATES HOLD ASPIRIN 7 DAYS PRE OP PER DR NORIEGA.LAST DOSE 02/15/23 TOTAL JOINT CLASS 02/09/23 AT 10 AM Please no make-up, nail maltese, hairspray, perfume, deodorant, or body powder the day of surgery. No jewelry (including any body piercings) or valuables the day of surgery, leave them at home. Please take a shower or bath the night before, or the morning of, surgery with an antibacterial soap. Wear comfortable, loose fitting clothing. Children are encouraged to wear pajamas. - Jewelry must be removed prior to entering the operating room. Rings and piercings that are not removed may be cut off. - The hospital will not accept responsibility for valuables. - Please leave all valuables, including medications, at home the day of surgery. If you are going home after surgery, a licensed motorcoach driver must drive you home. - NO public transportation without another adult if you receive anesthesia. - We recommend that an adult stay with you for 24 hours following discharge. - We also recommend that you do not drive, make important decision, drink alcoholic beverages, or take any drugs that were not prescribed by your health care provider for at least 24 hours after your discharge time. For Pediatric surgeries, we recommend two adults accompany the child home. Follow any additional instructions given to you from your surgeon. If you or anyone in your household have experienced Covid symptoms in the past week, please notify your surgeon or the nurse liaison at the phone number below for possible testing. VERBAL AND WRITTEN instructions given to __PATIENT and asked if any additional questions and then verbalized understanding. Patient advised to call surgeon office or pre surgery nurse liaison [phone] if any additional questions.
[2023-02-07 11:04] VITALS: BP 125/83; PULSE 68; RESP 18; TEMP 36.8; O2SAT 98
--- NOTE | 2023-02-22 13:21 | WPDANESEPPF ---
Anes - Initial Pre Proc Eval Procedure: Operation Date: 02/23/23 07:30 Proposed Procedures p Right Total Knee Arthroplasty, Left Knee Cortisone Injection - Joby Benavidez MD Date/Time: 02/22/23 13:21 Surgeon: Joby Benavidez MD Pre Op Diagnosis: bilateral knee's djd Patient Data Age: 67 Gender: M Height: 1.68 m Weight: 108.7 kg Last Vital Signs Temp 98.3 F 02/07/23 11:04 Pulse 68 02/07/23 11:04 Resp 18 02/07/23 11:04 BP 125/83 02/07/23 11:04 Pulse Ox 98 02/07/23 11:04 O2 Del Method Room Air 02/07/23 11:04 Allergies Allergy/AdvReac Type Severity Reaction Status Date / Time No Known Allergies Allergy Mild Verified 02/23/23 06:08 Home Medications Medication Instructions Recorded Confirmed Type potassium citrate 10 mEq (1,080 20 meq PO TID 09/03/19 02/23/23 History mg) tablet,extended release clobetasol 0.05 % topical ointment 1 applic topical BID 2 weeks #45 04/20/21 02/23/23 Rx grams aspirin 325 mg tablet 325 mg PO PRN PRN Pain 02/07/23 02/23/23 History chlorhexidine gluconate 4 % 1 applic topical DAILY #237 mL 02/11/23 02/23/23 Rx topical liquid (Hibiclens) Patient hx anesthesia problems: none Family hx anesthesia problems: none Results Review: All pre-operative results and documents have been reviewed as part of the pre-operative evaluation. [facility] Past Medical History Medical History Angina pectoris Dyslipidemia Kidney stones Mass of face marginal zone lymphoma Morbid obesity with BMI of 45.0-49.9, adult Obstructive sleep apnea (~2001) Surgical History Surgical History H/O lithotripsy H/O radical prostatectomy History of right nephrectomy 2001 Family History Family History Mother Patient's mother is in good health Sibling Patient's sister is in good health Patient's brother is in good health Social History Social History Smoking packs per day: 0.25 Smoking cigarettes per day: 5.0 Years smoked: 15 Smoking pack-years: 3.75 Smoking status: Former smoker Tobacco type: cigarettes Second hand tobacco smoke exposure: No Additional smoking assessment comments: DENIES ANY FORM OF TOBACCO USE Alcohol intake: current Drinks per week: 5 Alcohol use details: 2 DRINKS PER MONTH Substance use: never Substance use type: does not use Lack of Transportation: No Lack of Food: Never True Current Housing: I Have Housing Concerned About Future Housing: No Difficulty Paying Gas/Electric Bills: No Difficulty Paying for Meds: No Currently Unemployed: No Education: Associate Degree Difficulty w/ Childcare or Family Care: No Living arrangements: with family Occupation/Education: occupation 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[employer] Gender identity (if 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 patient): Male Spiritual care concerns: No Agree to blood products: Yes Anes - Eval Final PreProcedure Day of Procedure 02/22/23 13:21 Patient weight: obese Heart: regular rate and rhythm Lungs: clear to auscultation Airway: Mallampati scale class III Neurological: alert and oriented Last oral intake: >/= 8 hours ASA classification: III Emergent: no Anesthetic plan: proceed Anesthesia type and monitoring: general LMA and standard monitoring Results Review: All pre-operative results and documents have been reviewed as part of the pre-operative evaluation. Informed Consent: The patient's anesthetic plan and its attendant risks and benefits were discussed with the patient/family/POA. Questions were solicited and answers provided to the satisfaction of the patient/family/POA.
[2023-02-23] VITALS (14 sets, daily range): BP systolic 119–145; BP diastolic 67–82; PULSE 64–92; RESP 8–20; TEMP 35.8–36.8; O2SAT 93–99
--- NOTE | ~2023-02-23 | XR_ITS ---
Right Knee Technique: Portable AP and crosstable lateral views Clinical History: Status post TKR Findings: Patient is status post total knee replacement. Orthopedic hardware alignment appears anatom ic. No hardware complication is evident. Subcutaneous emphysema and swelling is likely postoperative in nature. No acute osseous fracture is seen. Impression: Status post total knee replacement, without evidence of hardware complication. Reviewed, dictated and finalized at location . Impression: Status post total knee replacement, without evidence of hardware complication.
[2023-02-23] MEDS: ACETAMINOPHEN 500 MG TABLET 1000 MG PO (06:18)
[2023-02-23] MEDS: LACTATED RINGERS 1,000 ML 30 ML IV CONT ×2 (06:25→10:17)
[2023-02-23] MEDS: TRANEXAMIC ACID 1,000MG/ISO100 1,000 MG/100 ML BAG 200 MG IVPB (07:18)
--- NOTE | 2023-02-23 07:21 | WPDANESPNB ---
Anes - Peripheral Nerve Block Date/Time: 02/23/23 07:21 I have discussed with the patient/family/POA the placement of a peripheral nerve block for post-operative pain management, including associated risks, benefits, complications, and side effects. Alternative methods of post-operative analgesia were detailed. Questions were solicited and answers provided to the satisfaction of the patient/family/POA. Time-Out: A pre-procedural Time-Out was completed immediately before starting the procedure and confirmed: Patient Identification, Site, Procedure, Patient Position and the Availability of Requisite Equipment. Clinical Indications: Acute post-operative pain management requested by the operative surgeon. Nerve Block Insertion Note Anes-nerve block: adductor canal right Patient position: supine Skin prep: chlorhexidine Needle: 22 gauge, stimulating, insulated echogenic needle. Needle length: 80 mm Technique: ultrasound Injectate: bupivacaine 0.5% with epi 5 mcg/ml (30cc - no epi) Observations: tolerated well Complications: none Procedure start time:: 724 Procedure end time:: 729
--- NOTE | 2023-02-23 07:23 | WPDHPUPDATE1 ---
History and Physical Update Update Date/Time: 02/23/23 07:23 History and Physical has been reviewed, including an updated exam of the patient. There are NO changes in the patient's condition. Risks, benefits, and alternatives have been discussed and questions answered. Patient agrees to proceed with procedure. PROCEED WITH R TKA AND LEFT KNEE INJECTION
[2023-02-23] MEDS: ceFAZolin 2 GM/D5W 50 ML 2 GM/50 ML BAG IVPB ×3 (07:35→23:50)
[2023-02-23] MEDS: TRANEXAMIC ACID 1,000 MG/10 ML AMPUL 1000 MG IV PUSH (09:24)
[2023-02-23] MEDS: VANCOMYCIN HCL 1,000 MG VIAL 1000 MG TOPICAL (09:41)
[2023-02-23] MEDS: BUPivacaine HCL 0.5% 10 ML AMP 4 ML INFILTRATE (10:11)
--- NOTE | 2023-02-23 10:23 | P.OP_ITS ---
Procedure Note - Detailed Date of Procedure 02/23/23 Pre-op Diagnosis bilateral knee's djd Post-op Diagnosis Same Procedure Performed R TKA, LEFT KNEE INJECTION Surgeon Joby Benavidez MD Anesthesia General Description of Procedure THE RIGHT KNEE WAS PREPPED AND DRAPED IN THE STERILE FASHION. THERE WAS A 20 DEG REE FLEXION CONTRACTURE. A MIDLINE SKIN INCISION WAS MADE. A MEDIAL PARAPATELLAR ARTHROTOMY WAS MADE. THE PATELLA WAS EVERTED. THERE WAS TRICOMPARTMENT DJD. THERE WAS MINIMAL PATELLA DJD. AN INTRAMEDULLARY LORI WAS PLACED IN THE FEMUR. A DISTAL FEMORAL CUT WAS MADE IN 5 DEGREES OF VALGUS REMOVING APPROXIMATELY 11 MM OF BONE FROM THE DISTAL FEMUR. THE FEMUR WAS SIZED TO 70. A 70 FEMORAL CUTTING BLOCK WAS PLACED IN 3 DEGREES OF EXTERNAL ROTATION AND IN ALIGNMENT WITH AARON'S LINE AND THE TRANSEPICONDYLAR AXIS. ANTERIOR POSTERIOR AND CHAMFER CUTS WERE MADE. THE CUTS WERE EXCELLENT. NEXT AN INTRAMEDULLARY CUTTING GUIDE WAS PLACED IN THE TIBIA. A TRANS TIBIAL CUT WAS MADE ALONG THE LONG AXIS OF THE TIBIA. APPROXIMATELY 10 MM OF BONE WAS REMOVED FROM THE HIGH SIDE OF THE TIBIA. THE TIBIA WAS THEN PLANED TO A SMOOTH SURFACE. POSTERIOR FEMORAL OSTEOPHYTES WERE REMOVED FROM THE FEMORAL CONDYLES. A 79 TIBIAL TRIAL WAS PLACED IN ALIGNMENT WITH THE 1/3 MEDIAL ASPECT OF THE TIBIAL T UBERCLE. THEN A 70 FEMORAL TRIAL COMPONENT WAS PLACED. BOTH HAD EXCELLENT FITS. EVENTUALLY A 10 MM POLYETHYLENE TRIAL COMPONENT WAS PLACED. THE KNEE WAS TAKEN THROUGH A RANGE OF MOTION. THE KNEE CAME OUT TO FULL EXTENSION. THERE WAS NO ABNORMAL TILT TO THE PATELLA. THERE WAS GOOD A/P AND VARUS/VALGUS STABILITY. THERE WAS NO EXCESSIVE ROLL BACK WITH FLEXION. THE TRIAL COMPONENTS WERE REMOVED. THEN A 70 FEMORAL COMPONENT AND 79 TIBIAL COMPONENT WITH A 10 POLYETHYLENE COMPONENT WERE CEMENTED INTO PLACE. ONCE THE CEMENT WAS HARD THE KNEE WAS TAKEN THROUGH A ROM AGAIN AND FOUND TO BE STABLE WITH NO PATELLA TILT NO EXCESSIVE ROLL BACK WITH FLEXION AND GOOD STABILITY WITH COMPLETE AND FULL EXTENSION. THE KNEE WAS IRRIGATED WITH STERILE BETADINE AND WATER FOR ABOUT 3 MINUTES. THE BLEEDERS WERE CAUTERIZED. THE ARTHROTOMY WAS REPAIRED WITH NUMBER 1 VICRYL. THE SUB CUTANEOUS LAYER WITH 2-0 VICRYL AND THE SKIN WITH GURINDER. THE WOUND WAS WASHED AND A STERILE DRESSING WAS APPLIED. NEXT THE LEFT KNEE WAS PREPPED AND A CORTISONE INJECTION 1 CC, 80 MG WITH MARCAINE 0.5% WAS PREFORMED. PATIENT WAS EXTUBATED. Estimated Blood Loss 100 Pathology None sent Complications No immediate complications Condition Stable Disposition PACU
[2023-02-23] MEDS: fentaNYL CITRATE INJ (*CRX) 100 MCG/2 ML VIAL 25 MCG IV PUSH ×2 (10:43→11:07)
--- NOTE | 2023-02-23 12:06 | ADMGEN ---
This patient, Macario Martin, was admitted to Medical Room 250-01. Patient/family oriented to hospital policies and general routines including ID bracelet, bed and alarms, visiting hours, pain management, procedures, bathroom and other care routines, personal items, smoking policy, room service/diet, and visiting hours. Information on how to activate the Rapid Response Team has been discussed. Patient/Family are encouraged to report perceived risks to care and to ask questions if they do not understand what they are told or what they should do.
[2023-02-23] MEDS: KETOROLAC 15 MG/ML VIAL (*BKC) IV PUSH ×3 (12:20→23:49)
[2023-02-23] MEDS: POTASSIUM CITRATE 5 MEQ TAB CR 20 MEQ PO ×2 (12:20→17:28)
[2023-02-23] MEDS: oxyCODONE/ACETAMINOPHEN (*CRX) 5-325 MG TABLET 2 TABLET PO ×2 (12:42→22:39)
[2023-02-23] MEDS: SENNA/DOCUSATE SODIUM TABLET 2 TAB PO (17:28)
[2023-02-23] MEDS: FAMOTIDINE 20 MG TABLET PO (22:40)
[2023-02-24 01:18] VITALS: BP 101/56; PULSE 64; RESP 18; TEMP 36.9; O2SAT 94
[2023-02-24 05:18] VITALS: BP 107/81; PULSE 69; RESP 18; TEMP 36.6; O2SAT 97
[2023-02-24] MEDS: KETOROLAC 15 MG/ML VIAL (*BKC) IV PUSH ×2 (05:44→13:46)
[2023-02-24 06:38] LABS: Basophils Percent Auto 0.1 % (0.2-1.2); Hematocrit 37.1 % (42.0-52.0); Hemoglobin 13.2 g/dL (14.0-18.0); Immature Granulocyte Absolute 0.14 K/mm3 (0.00-0.031); Immature Granulocyte Percent A 0.8 % (0-0.5); Lymphocytes Absolute Auto 0.78 K/mm3 (0.9-3.2); Lymphocytes Percent Auto 4.5 % (18.3-44.2); Mean Corpuscular HGB Conc 35.6 g/dl (32-36); Mean Corpuscular Hemoglobin 31.9 pg (26-34); Mean Corpuscular Volume 89.6 fl (80-100); Mean Platelet Volume 9.5 fl (7.4-10.4); Monocytes Percent Auto 5.7 % (2.6-8.5); Neutrophils Absolute Auto 15.3 K/mm3 (1.3-6.7); Neutrophils Percent Auto 88.9 % (45.5-73.1); Platelet Count Result 190 k/mm3 (150-375); Red Blood Count 4.14 M/mm3 (4.6-6.20); Red Cell Distribution Width 12.6 % (11.5-14.5); White Blood Count 17.2 K/mm3 (4.5-10.0)
[2023-02-24 06:51] LABS: Anion Gap 8 mmol/L (8-16); Blood Urea Nitrogen 21 mg/dL (9-20); Calcium 8.6 mg/dL (8.4-10.2); Carbon Dioxide 26 mmol/L (22-30); Chloride 100 mmol/L (98-107); Estimated CRCL calculation 79 ml/min; Estimated Glomerular Filt Rate > 60; Glucose 124 mg/dL (65-110); Potassium 4.4 mmol/L (3.4-5.0); Sodium 134 mmol/L (137-145)
[2023-02-24 09:18] VITALS: BP 113/69; PULSE 64; RESP 16; TEMP 37.2; O2SAT 94
[2023-02-24] MEDS: oxyCODONE/ACETAMINOPHEN (*CRX) 5-325 MG TABLET 2 TABLET PO (10:04)
[2023-02-24] MEDS: SENNA/DOCUSATE SODIUM TABLET 2 TAB PO (10:06)
[2023-02-24] MEDS: POTASSIUM CITRATE 5 MEQ TAB CR 20 MEQ PO ×2 (10:07→13:43)
[2023-02-24] MEDS: FAMOTIDINE 20 MG TABLET PO (10:08)
[2023-02-24] MEDS: ceFAZolin 2 GM/D5W 50 ML 2 GM/50 ML BAG IVPB (10:09)
--- NOTE | 2023-02-24 10:30 | WPDANESPN ---
Anes - Prog Note Post-Op Date/Time: 02/24/23 10:30 Cardiovascular status: normal Respiratory status: normal Airway patency: baseline Mental status: baseline Post-Op hydration status: normal Vital Signs: Last Vital Signs Temp 36.6 C 02/24/23 05:18 Pulse 69 02/24/23 05:18 Resp 18 02/24/23 05:18 BP 107/81 02/24/23 05:18 Pulse Ox 97 02/24/23 05:18 O2 Del Method CPAP 02/23/23 23:00 O2 Flow Rate 2 02/23/23 11:30 Pain Score (VAS): 07/06 I/O: Intake & Output 02/23/23 02/24/23 02/24/23 23:59 07:59 15:59 Intake Total 270 50 Balance 270 50 Laboratory Tests 02/24/23 05:44 02/24/23 05:44 02/24/23 05:44 WBC 17.2 H RBC 4.14 L Hgb 13.2 L Hct 37.1 L MCV 89.6 MCH 31.9 MCHC 35.6 RDW 12.6 Plt Count 190 MPV 9.5 Immature Gran % (Auto) 0.8 H Neut % (Auto) 88.9 H Lymph % (Auto) 4.5 L [place] % (Auto) 5.7 Eos % (Auto) 0.0 Baso % (Auto) 0.1 L Lymph # (Auto) 0.78 L Caroline # (Auto) 1.0 H Eos # (Auto) 0.0 Baso # (Auto) 0.0 Abs Immat Gran (auto) 0.14 H Absolute Neuts (auto) 15.3 H Absolute Nucleated RBC 0.0 Nucleated RBC % 0.0 Sodium 134 L Potassium 4.4 Chloride 100 Carbon Dioxide 26 Anion Gap 8 BUN 21 H Creatinine 0.90 Estim Creat Clear Calc 79 Estimated GFR > 60 Glucose 124 H Calcium 8.6 Post-procedural complaints: none Patient Feedback: Patient satisfied with anesthetic care.
--- NOTE | 2023-02-24 13:27 | PC.NURSE ---
On 02/24/23, the student, [Benita Bruno], provided care and completed [facility] documentation on this patient. I have reviewed the student's documentation and agree with the findings.
[2023-02-24 14:15] VITALS: BP 103/57; PULSE 56; RESP 18; TEMP 36.6; O2SAT 94
--- NOTE | 2023-02-24 15:59 | PM.DS ---
DS: Admitting Diagnosis Discharge Date 02/24/23 Admitting Diagnosis RIGHT KNEE DJD DS: Discharge Diagnosis Discharge Diagnosis (1) DJD (degenerative joint disease) of knee: Qualifiers: Osteoarthritis type: other secondary Laterality: bilateral Qualified Code(s): M17.4 - Other bilateral secondary osteoarthritis of knee Code(s): M17.10 - Unilateral primary osteoarthritis, unspecified knee Status: Acute Assessment and Plan: R TKA POD DOING WELL. OK TO DC HOME. F/U IN 3 WEEKS DS: Summary Hospital Course Reason for hospitalization: PATIENT WAS ADMITTED S/P TOTAL KNEE ARTHROPLASTY FOR POSTOPERATIVE MEDICAL MANAGEMENT, PAIN CONTROL AND MOBILIZATION WITH PHYSICAL AND OCCUPATIONAL THERAPY. THE PATIENT PROGRESSED WELL WITH PT/OT. LABS AND VITALS REMAINED STABLE AND PAIN WELL CONTROLLED. THE PATIENT HAS BEEN CLEARED TO BE DISCHARGED HOME. FOLLOW UP APPOINTMENT SCHEDULED. DISCHARGE INSTRUCTIONS DISCUSSED AT LENGTH WITH THE PATIENT. MEDICATIONS REVIEWED. Hospital Course: PATIENT WAS ADMITTED S/P TOTAL TKA ARTHROPLASTY FOR POSTOPERATIVE MEDICAL MANAGEMENT, PAIN CONTROL AND MOBILIZATION WITH PHYSICAL AND OCCUPATIONAL THERAPY. THE PATIENT PROGRESSED WELL WITH PT/OT. LABS AND VITALS REMAINED STABLE AND PAIN WELL CONTROLLED. THE PATIENT HAS BEEN CLEARED TO BE DISCHARGED HOME. FOLLOW UP APPOINTMENT SCHEDULED. DISCHARGE INSTRUCTIONS DISCUSSED AT LENGTH WITH THE PATIENT. MEDICATIONS REVIEWED. Status at Discharge Cognitive/behavioral status at discharge: STABLE Time Spent with Patient Time attestation: Total time spent providing and/or coordinating discharge services: Exam Extrem: Other: VSS AFEBRILE DRESSING DRY NV INTACT NEG HOMANS SIGN CALF SOFT NON TENDER DS: Data Data Completed and Pending Labs on day of discharge: Labs from last 24 hours 02/24/23 05:44 WBC 17.2 H RBC 4.14 L Hgb 13.2 L Hct 37.1 L MCV 89.6 MCH 31.9 MCHC 35.6 RDW 12.6 Plt Count 190 MPV 9.5 Immature Gran % (Auto) 0.8 H Neut % (Auto) 88.9 H Lymph % (Auto) 4.5 L [place] % (Auto) 5.7 Eos % (Auto) 0.0 Baso % (Auto) 0.1 L Lymph # (Auto) 0.78 L [place] # (Auto) 1.0 H Eos # (Auto) 0.0 Baso # (Auto) 0.0 Abs Immat Gran (auto) 0.14 H Absolute Neuts (auto) 15.3 H Absolute Nucleated RBC 0.0 Nucleated RBC % 0.0 Sodium 134 L Potassium 4.4 Chloride 100 Carbon Dioxide 26 Anion Gap 8 BUN 21 H Creatinine 0.90 Estim Creat Clear Calc 79 Estimated GFR > 60 Glucose 124 H Calcium 8.6 Procedures/Treatments: R TKA Discharge Plan Discharge Patient Disposition: Home Health Service Discharge Instructions: Per Care Coordination: [facility] to call to schedule visits for RN/PT/OT. Post Op Total Knee Replacement Instructions Dr. Joby Benavidez [phone] Your dressing will be changed prior to your discharge. You will be sent home with one additional dressing to be changed on post op day 7 by the home health RN. Your sheyla will be removed on the 14th day after surgery and steri-strips will be placed. Please practice good hand hygiene and do not touch your incision in order to prevent infection. You may shower with your dressing but do not submerge in a bath tub. Do not drive or operate machinery until you are released by Dr. Benavidez. Do not walk without a walker for any reason until you are released by Dr. Benavidez. Continue to use your ice machine. Please use a towel or pillow case to protect your skin before applying your ice machine. Do NOT place a pillow under your knee. You may use a pillow from the calf down if needed. This will prevent a flexion contracture postoperatively. You may begin use of your CPM machine at home if you have been given one pre-operatively. DO NOT USE WHILE YOU ARE SLEEPING. Your first post op appointment was sent to you via mail preoperatively and is again listed below in the discharge instructions. If you have any questions or are un
== END 2023-02-24 16:50 | disposition home health service (06) ==
LOC: ANHSURGERY 05:52 → ANH2MED 11:35
PROVIDERS: PCP Family Medicine; Visit Provider Orthopaedic Surgery
PROC: (CPT 27447; principal; 2023-02-23 07:30)
PROC: (CPT 27447; 2023-02-23 07:30)
DX: M17.0 Bilateral primary osteoarthritis of knee (principal); G89.18 Other acute postprocedural pain; Z79.82 Long term (current) use of aspirin; G47.33 Obstructive sleep apnea (adult) (pediatric); E66.9 Obesity, unspecified; Z68.37 Body mass index [BMI] 37.0-37.9, adult; Z87.891 Personal history of nicotine dependence
CPT/HCPCS: 27447; 20610; 64447; 36415; 73560; 80048; 80307; 81003; 82040; 83036; 85025; 85610; 85730; 86850; 86860; 86870; 86880; 86900; 86901; 86902; 86971; 86978; 87081; 97110; 97116; 97161; 97165; 97530; 97535; A9270; C1713; C1776; J0171; J0690; J1040; J1100; J1170; J1885; J2250; J2270; J2405; J2704; J2795; J3010; J3370; J7120

== ENCOUNTER 2023-05-12 10:00 | Outpatient (RCR) | payer OTHER, SELFPAY ==
--- NOTE | 2023-03-21 10:49 | OPREHPOC ---
Outpatient Therapy Plan of Care This is a Multidisciplinary Plan of Care that may contain components documented by all disciplines (PT, OT, and ST.) PT Problem 1 PT Problem #1 Knowledge Deficit PT Goal 1 Goal 1. Patient will perform independent HEP Target Visit 25 PT Problem 2 PT Problem #2 Pain PT Goal 1 Goal 1. Patient will report no pain with ADL's Target Visit 25 PT Problem 3 PT Problem #3 Impaired Range of Motion PT Goal 1 Goal 1. Improve knee flexion to 110 for stair navigation 2. Improve knee extension to 0 for normalized gait pattern Target Visit 25 PT Problem 4 PT Problem #4 Impaired Functional ADLs PT Goal 1 Goal 1. Patient will report he can cook and clean without limitation Target Visit 25 PT Problem 5 PT Problem #5 Impaired Strength PT Goal 1 Goal 1. Improve knee flexion and extension to 5/5 to return to cooking and cleaning
--- NOTE | 2023-03-21 10:49 | PTOPEVAL1 ---
Assessment and note entered by Shayna Arriaga DPT Evaluation Information Assessment Status Evaluation Subjective Information Pt had R TKA on 02/23/23. Pt had home health therapy for about 2 weeks. Highest pain 3/10 and lowest 0/10. Pt is using FWW at all times right now. No walker use before surgery. Pt has 2 steps going into his house and has been able to do them by placing both feet on each step. Has a second story but does not have to go up the stairs currently. Pt has not been doing his normal cleaning or yard work, has been able to do some light cooking. Getting dressed and bathing independently. Pt is not driving yet per MD. Returns to [place] in 3 months and will be getting his left knee done in May. Patient goal: get pain free, be able to walk a mile and go hiking Reported Pain Level Pain Score 1: Self Report Assessment PT Clinical Summary The patient is s/p R TKA on 02/23/23. He presents with significantly impaired range of motion (+2 extension, 80 flexion), decreased strength, and edema which are contributing to his difficulty doing normal activities including navigating stairs and cooking and cleaning. He will highly benefit from therapy to address these impairments in order to reduce pain and return to prior level of function. Plan of Care Interventions Electrical Stimulation,Gait Training,Hot Pack/Cold Pack,Manual Therapy,Neuro Re-education,Patient/ Caregiver Education,Therapeutic Activities, Therapeutic Exercise PT Services Indicated Yes Treatment Frequency and 2-3 times a week for 24 visits Duration These treatments will address the objective and functional deficits as defined above. The patient will be advanced safely and appropriately in order for the patient to progress towards his/her prior level of function. Additional exercises will be introduced and as well as a comprehensive home exercise program upon discharge, if needed, ?to ensure carryover of functional gains achieved in the clinic. This treatment plan has been reviewed and agreement upon by the patient.
--- NOTE | 2023-04-21 15:14 | OPREHPOC ---
Outpatient Therapy Plan of Care This is a Multidisciplinary Plan of Care that may contain components documented by all disciplines (PT, OT, and ST.) PT Problem 1 PT Problem #1 Knowledge Deficit PT Goal 1 Goal 1. Patient will perform independent HEP Target Visit 25 Progress Partially Met PT Problem 2 PT Problem #2 Pain PT Goal 1 Goal 1. Patient will report no pain with ADL's Target Visit 25 Progress Partially Met PT Problem 3 PT Problem #3 Impaired Range of Motion PT Goal 1 Goal 1. Improve knee flexion to 110 for stair navigation 2. Improve knee extension to 0 for normalized gait pattern Target Visit 25 Progress Partially Met PT Problem 4 PT Problem #4 Impaired Functional ADLs PT Goal 1 Goal 1. Patient will report he can cook and clean without limitation Target Visit 25 Progress Partially Met PT Problem 5 PT Problem #5 Impaired Strength PT Goal 1 Goal 1. Improve knee flexion and extension to 5/5 to return to cooking and cleaning Progress Partially Met
--- NOTE | 2023-04-21 15:14 | PTOPPROG ---
Assessment and note entered by Shayna Arriaga DPT Evaluation Information Assessment Status Progress Subjective Information Highest pain in last week 3/10 and lowest 0/10. Feels that therapy is going well and his mobility has improved, less pain with standing and walking activities. Pt has been able to cook and clean again. Assessment PT Clinical Summary The patient has made good progress in therapy and reports improvements with ability to cook and clean and has been ambulating without the walker. He demonstrates improved strength and stair navigation. He demonstrates improved but still limited knee flexion to 100 degrees. Due to his progress but continued pain and lack of full motion he will benefit from further therapy to allow for full function without pain. Plan of Care Interventions Electrical Stimulation,Gait Training,Hot Pack/Cold Pack,Manual Therapy,Neuro Re-education,Patient/ Caregiver Education,Therapeutic Activities, Therapeutic Exercise PT Services Indicated Yes Treatment Frequency and 1-2 times a week for 8 visits Duration These treatments will address the objective and functional deficits as defined above. The patient will be advanced safely and appropriately in order for the patient to progress towards his/her prior level of function. Additional exercises will be introduced and as well as a comprehensive home exercise program upon discharge, if needed, ?to ensure carryover of functional gains achieved in the clinic. This treatment plan has been reviewed and agreement upon by the patient.
--- NOTE | 2023-05-12 10:34 | OPREHPOC ---
Outpatient Therapy Plan of Care This is a Multidisciplinary Plan of Care that may contain components documented by all disciplines (PT, OT, and ST.) PT Problem 1 PT Problem #1 Knowledge Deficit PT Goal 1 Goal 1. Patient will perform independent HEP Target Visit 25 Progress Met PT Problem 2 PT Problem #2 Pain PT Goal 1 Goal 1. Patient will report no pain with ADL's Target Visit 25 Progress Met PT Problem 3 PT Problem #3 Impaired Range of Motion PT Goal 1 Goal 1. Improve knee flexion to 110 for stair navigation 2. Improve knee extension to 0 for normalized gait pattern Target Visit 25 Progress Partially Met PT Problem 4 PT Problem #4 Impaired Functional ADLs PT Goal 1 Goal 1. Patient will report he can cook and clean without limitation Target Visit 25 Progress Met PT Problem 5 PT Problem #5 Impaired Strength PT Goal 1 Goal 1. Improve knee flexion and extension to 5/5 to return to cooking and cleaning Target Visit 25 Progress Met
--- NOTE | 2023-05-12 10:34 | PTOPDC ---
Assessment and note entered by Shayna Arriaga DPT Evaluation Information Assessment Status Discharge Subjective Information Pt reports no real pain in the last week, just a dull ache 07/06. Pt reports he has been able to resume all ADL's and grocery shop. Will be getting his other knee replaced on 05/31 and reports more limitations from that one. Reported Pain Level Pain Score 0: Self Report Assessment PT Clinical Summary The patient has continued to make good progress in therapy and demonstrates improved LE strength and gait speed. He reports no real pain recently and has been able to return to all ADL's. He does continue to display some flexion ROM limitations, 108 today. He will be discharged this visit in preparation for his upcoming opposite LE TKA surgery with education to continue HEP to further improve right knee flexion. Plan of Care PT Services Indicated No
== END 2023-05-12 11:37 | disposition home or self-care (01) ==
LOC: ANHPT 10:00
PROVIDERS: PCP Family Medicine; Visit Provider Orthopaedic Surgery
DX: Z47.1 Aftercare following joint replacement surgery (principal); Z96.651 Presence of right artificial knee joint
CPT/HCPCS: 97110; 97112; 97140; 97161; 97530

== ENCOUNTER 2023-05-17 09:54 | Outpatient (CLI) | payer OTHER, SELFPAY ==
[2023-05-17 11:03] LABS: Basophils Percent Auto 0.6 % (0.2-1.2); Eosinophils Absolute Auto 0.1 K/mm3 (0-0.3); Eosinophils Percent Auto 1.5 % (0-4.4); Hemoglobin 14.8 g/dL (14.0-18.0); Immature Granulocyte Absolute 0.02 K/mm3 (0.00-0.031); Immature Granulocyte Percent A 0.3 % (0-0.5); Lymphocytes Absolute Auto 1.19 K/mm3 (0.9-3.2); Lymphocytes Percent Auto 16.4 % (18.3-44.2); Mean Corpuscular HGB Conc 33.6 g/dl (32-36); Mean Corpuscular Volume 89.2 fl (80-100); Mean Platelet Volume 9.1 fl (7.4-10.4); Monocytes Absolute Auto 0.5 K/mm3 (0.1-0.6); Monocytes Percent Auto 6.6 % (2.6-8.5); Neutrophils Absolute Auto 5.4 K/mm3 (1.3-6.7); Neutrophils Percent Auto 74.6 % (45.5-73.1); Platelet Count Result 191 k/mm3 (150-375); Red Blood Count 4.93 M/mm3 (4.6-6.20); White Blood Count 7.3 K/mm3 (4.5-10.0)
[2023-05-17 11:13] LABS: INR 1.2; Prothrombin Time 15.4 Seconds (11.1-14.7)
[2023-05-17 11:14] LABS: Partial Thromboplastin Time 38.5 SECONDS (22.3-36.8)
[2023-05-17 11:18] LABS: Appearance Urine Cloudy (Clear); Bacteria Urine None Seen /hpf; Bilirubin Urine Negative (Negative); Blood Urine 1+ (Negative); Budding Yeast Urine Present /hpf; Calcium Oxalate Crystals Urine Present /hpf; Color Urine Yellow (Yellow); Glucose Urine UA Negative (Negative); Ketones Urine Trace mg/dL (Negative); Leukocyte Esterase Ur Negative LEU/UL (Negative); Need Manual Microscopic Reviewed; Nitrate Urine Negative (Negative); Non Pathogenic Casts 0-2; Protein Urine Negative (Negative); Specific Grav Ur 1.018 (1.001-1.035); Squamous Epithelial Cell Urine None seen /hpf (Few); WBC Urine 0-5 /hpf; pH Urine 5.5 (5.0-9.0)
[2023-05-17 11:20] LABS: Add Urine Microscopic? YES
[2023-05-17 11:21] LABS: Albumin Level 4.3 g/dL (3.5-5.1); Anion Gap 8 mmol/L (8-16); Blood Urea Nitrogen 13 mg/dL (9-20); Calcium 9.3 mg/dL (8.4-10.2); Carbon Dioxide 29 mmol/L (22-30); Chloride 102 mmol/L (98-107); Estimated Glomerular Filt Rate > 60; Glucose 90 mg/dL (65-110); Potassium 4.4 mmol/L (3.4-5.0); Sodium 139 mmol/L (137-145)
[2023-05-17 11:24] LABS: Urine Cotinine NEGATIVE
[2023-05-17 11:31] LABS: Hemoglobin A1C 4.6 % (<5.7)
== END 2023-05-17 09:55 | disposition home or self-care (01) ==
LOC: ANHSURGERY 09:57
PROVIDERS: PCP Family Medicine; Visit Provider Orthopaedic Surgery
DX: M17.12 Unilateral primary osteoarthritis, left knee (principal); Z01.818 Encounter for other preprocedural examination
CPT/HCPCS: 80048; 80307; 81001; 82040; 83036; 85025; 85610; 85730; 86850; 86860; 86870; 86880; 86900; 86901; 86902; 86922; 86978; 87081

== ENCOUNTER 2023-05-31 00:35 | Day surgery (SDC) | payer OTHER, SELFPAY ==
--- NOTE | 2023-05-17 09:43 | PC.NURSE ---
PRE-OP INSTRUCTIONS, PLEASE READ CAREFULLY Report to the Outpatient Waiting Room, entrance under the green pavilion located off [facility], at time _0900_ on date _05/31/23_. Planned Procedure Time: _1100_. PACK A SMALL OVERNIGHT BAG AND LEAVE IN THE CAR ALONG WITH YOUR WALKER Time changes happen often and if your time is changed the preop area will call you the afternoon before. - You and your visitor will be asked to self-screen and do not enter if you have any COVID symptoms. - A mask is optional within the hospital at this time. -VISITING HOURS 8AM-8PM Patients may have clear liquids (water, carbonated beverages, clear teas, apple juice) until 3 hours prior to surgery (0800 AM) with a maximum of 20 ounces. - No food from midnight until time of surgery Take the following medications with a SIP of water the morning of surgery: _NONE_ DO NOT STOP ANY OF YOUR OTHER PRESCRIPTION MEDICATIONS PRIOR TO SURGERY ?EXCEPT THE FOLLOWING Medications to discontinue - ___NONE___, Date to take last dose Please no make-up, nail prydeinig, hairspray, perfume, deodorant, or body powder the day of surgery. No jewelry (including any body piercings) or valuables the day of surgery, leave them at home. Please take a shower or bath the night before, or the morning of, surgery with an antibacterial soap. Wear comfortable, loose fitting clothing. - Jewelry must be removed prior to entering the operating room. Rings and piercings that are not removed may be cut off. - The hospital will not accept responsibility for valuables. - Please leave all valuables, including medications, at home the day of surgery. If you are going home after surgery, a licensed courtesy bus driver must drive you home. - NO public transportation without another adult if you receive anesthesia. - We recommend that an adult stay with you for 24 hours following discharge. - We also recommend that you do not drive, make important decision, drink alcoholic beverages, or take any drugs that were not prescribed by your health care provider for at least 24 hours after your discharge time. Follow any additional instructions given to you from your surgeon. If you or anyone in your household have experienced Covid symptoms in the past week, please notify your surgeon or the nurse liaison at the phone number below for possible testing. Instructions given to _PATIENT_and asked if any additional questions and then verbalized understanding. Patient advised to call surgeon office or pre surgery nurse liaison [phone] if any additional questions.
[2023-05-17 10:11] VITALS: BP 130/78; PULSE 54; RESP 20; TEMP 36.7; O2SAT 100; BMI 37.3
[2023-05-31] VITALS (16 sets, daily range): BP systolic 126–161; BP diastolic 65–87; PULSE 56–89; RESP 12–21; TEMP 36.2–37.1; O2SAT 94–100
--- NOTE | ~2023-05-31 | XR_ITS ---
EXAMINATION: [id number] DATE: 05/31/2023 13:44 GLAZING SUPERINTENDENT INDICATION: Left total knee arthroplasty TECHNIQUE: 2 views left knee FINDINGS: There is a left total knee arthroplasty in expected position. Subcutaneous gas with fluid and air in the joint and overlying skin sheyla are consistent with recent surgery. No evidence of pe riprosthetic fracture. IMPRESSION: 1. Recent left total knee arthroplasty. Reviewed, dictated and finalized at location L. ING SUPERINTENDENT
[2023-05-31] MEDS: LACTATED RINGERS 1,000 ML 30 ML IV CONT ×2 (09:35→13:24)
--- NOTE | 2023-05-31 09:36 | WPDHPUPDATE1 ---
History and Physical Update Update Date/Time: 05/31/23 09:36 History and Physical has been reviewed, including an updated exam of the patient. There are NO changes in the patient's condition. Risks, benefits, and alternatives have been discussed and questions answered. Patient agrees to proceed with procedure.
[2023-05-31] MEDS: ACETAMINOPHEN 500 MG TABLET 1000 MG PO (09:48)
[2023-05-31 09:58] LABS: INR 1.1; Prothrombin Time 14.7 Seconds (11.1-14.7)
[2023-05-31 09:59] LABS: Partial Thromboplastin Time 35.2 SECONDS (22.3-36.8)
[2023-05-31] MEDS: TRANEXAMIC ACID 1,000MG/ISO100 1,000 MG/100 ML BAG 200 MG IVPB (10:42)
--- NOTE | 2023-05-31 10:52 | WPDANESPNB ---
Anes - Peripheral Nerve Block Date/Time: 05/31/23 10:52 I have discussed with the patient/family/POA the placement of a peripheral nerve block for post-operative pain management, including associated risks, benefits, complications, and side effects. Alternative methods of post-operative analgesia were detailed. Questions were solicited and answers provided to the satisfaction of the patient/family/POA. Time-Out: A pre-procedural Time-Out was completed immediately before starting the procedure and confirmed: Patient Identification, Site, Procedure, Patient Position and the Availability of Requisite Equipment. Clinical Indications: Acute post-operative pain management requested by the operative surgeon. Nerve Block Insertion Note Anes-nerve block: adductor canal left Patient position: supine Skin prep: chlorhexidine Needle: 22 gauge, stimulating, insulated echogenic needle. Needle length: 80 mm Technique: ultrasound Injectate: bupivacaine 0.5% with epi 5 mcg/ml (30 cc no epi) and dexamethasone (mg) (8) Observations: tolerated well Complications: none Procedure start time:: 1045 Procedure end time:: 1051
--- NOTE | 2023-05-31 10:53 | WPDANESEPPF ---
Anes - Initial Pre Proc Eval Procedure: Operation Date: 05/31/23 11:00 Proposed Procedures p Left Total Knee Arthroplasty - Joby Benavidez MD Date/Time: 05/31/23 10:53 Surgeon: Joby Benavidez MD Pre Op Diagnosis: Left Knee DJD Patient Data Age: 67 Gender: M Height: 1.68 m Weight: 104.9 kg Last Vital Signs Temp 36.2 C L 05/31/23 08:59 Pulse 56 L 05/31/23 08:59 Resp 20 05/31/23 08:59 BP 127/71 05/31/23 08:59 Pulse Ox 98 05/31/23 08:59 O2 Del Method Room Air 05/31/23 08:59 Allergies Allergy/AdvReac Type Severity Reaction Status Date / Time No Known Allergies Allergy Mild Verified 05/31/23 09:02 Home Medications Medication Instructions Recorded Confirmed Type clobetasol 0.05 % topical ointment 1 applic topical BID PRN Rash 05/17/23 05/31/23 History clotrimazole-betamethasone 1 1 applic topical BID #15 grams 05/26/23 05/31/23 Rx %-0.05 % topical cream docusate sodium 100 mg capsule 100 mg PO BID #30 caps 05/26/23 05/31/23 Rx (Colace) Laboratory Tests 05/31/23 09:31 PT 14.7 Seconds (11.1-14.7) INR 1.1 APTT 35.2 SECONDS (22.3-36.8) Patient hx anesthesia problems: none Family hx anesthesia problems: none Results Review: All pre-operative results and documents have been reviewed as part of the pre-operative evaluation. 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 Morbid obesity with BMI of 45.0-49.9, adult Obstructive sleep apnea (~2001) Yeast infection of the skin Surgical History Surgical History H/O lithotripsy H/O radical prostatectomy History of right nephrectomy 2001 Status post total knee replacement, right DOS 02/23/23 Family History Family History Mother Patient's mother is in good health Sibling Patient's sister is in good health Patient's brother is in good health Social History Social History Smoking packs per day: 0.25 Smoking cigarettes per day: 5.0 Years smoked: 15 Smoking pack-years: 3.75 Smoking status: Former smoker Tobacco type: cigarettes Second hand tobacco smoke exposure: No Smoking end date: 06/27/79 Additional smoking assessment comments: PT DENIES ALL FORMS OF TOBACCO USE Alcohol intake: current Drinks per week: 5 Alcohol use details: 2/MONTH Substance use: never Substance use type: does not use Lack of Transportation: No Lack of Food: Never True Current Housing: I Have Housing Concerned About Future Housing: No Difficulty Paying Gas/Electric Bills: No Difficulty Paying for Meds: No Currently Unemployed: No Education: Associate Degree Difficulty w/ Childcare or Family Care: No Living arrangements: with family Occupation/Education: occupation 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 [employer] Gender identity (if 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 patient): Male Spiritual care concerns: No Agree to blood products: Yes Anes - Eval Final PreProcedure Day of Procedure 05/31/23 10:53 Patient weight: obese Heart: regular rate and rhythm Lungs: clear to auscultation Airway: Mallampati scale class II Neurological: alert and oriented Last oral intake: >/= 8 hours ASA classification: III Emergent: no Anesthetic plan: proceed Anesthesia type and monitoring: general LMA and standard monitoring Results Review: All pre-operative results and documents have been reviewed as part of the pre-operative evaluation. Informed Consent: The patient's anesthetic plan and its attendant risks and benefits were discussed with the patient/family/POA. Questions were solicited and answers provided to the satisfaction of the patient/family/POA.
[2023-05-31] MEDS: ceFAZolin 2 GM/D5W 50 ML 2 GM/50 ML BAG IVPB ×2 (10:56→18:13)
[2023-05-31] MEDS: TRANEXAMIC ACID 1,000 MG/10 ML AMPUL 1000 MG IV PUSH (12:26)
--- NOTE | 2023-05-31 13:34 | P.OP_ITS ---
Procedure Note - Detailed Date of Procedure 05/31/23 Pre-op Diagnosis Left Knee DJD Post-op Diagnosis Same Procedure Performed LEFT TKA Surgeon Joby Benavidez MD Anesthesia General Description of Procedure THE LEFT KNEE WAS PREPPED AND DRAPED IN THE STERILE FASHION. THERE WAS A 10 DEGREE FLEXION CONTRACTURE. A MIDLINE SKIN INCISION WAS MADE. A MEDIAL PARAPATELLAR ARTHROTOMY WAS MADE. THE PATELLA WAS EVERTED. THERE WAS TRICOMPARTMENT DJD. THERE WAS MINIMAL PATELLA DJD. AN INTRAMEDULLARY LORI WAS PLACED IN THE FEMUR. A DISTAL FEMORAL CUT WAS MADE IN 5 DEGREES OF VALGUS REMOVING APPROXIMATELY 9 MM OF BONE FROM THE DISTAL FEMUR. THE FEMUR WAS SIZED TO 70. A 70 FEMORAL CUTTING BLOCK WAS PLACED IN 3 DEGREES OF EXTERNAL ROTATION AND IN ALIGNMENT WITH AARON'S LINE AND THE TRANSEPICONDYLAR AXIS. ANTERIOR POSTERIOR AND CHAMFER CUTS WERE MADE. THE CUTS WERE EXCELLENT. NEXT AN INTRAMEDULLARY CUTTING GUIDE WAS PLACED IN THE TIBIA. A TRANS TIBIAL CUT WAS MADE ALONG THE LONG AXIS OF THE TIBIA. APPROXIMATELY 10 MM OF BONE WAS REMOVED FROM THE HIGH SIDE OF THE TIBIA. THE TIBIA WAS THEN PLANED TO A SMOOTH SURFACE. POSTERIOR FEMORAL OSTEOPHYTES WERE REMOVED FROM THE FEMORAL CONDYLES. A 79 TIBIAL TRIAL WAS PLACED IN ALIGNMENT WITH THE 1/3 MEDIAL ASPECT OF THE TIBIAL TUBERCLE. THEN A 70 FEMORAL TRIAL COMPONENT WAS PLACED. BOTH HAD EXCELLENT FITS. EVENTUALLY A 10 MM POLYETHYLENE TRIAL COMPONENT WAS PLACED. THE KNEE WAS TAKEN THROUGH A RANGE OF MOTION. THE KNEE CAME OUT TO FULL EXTENSION. THERE WAS NO ABNORMAL TILT TO THE PATELLA. THERE WAS GOOD A/P AND VARUS/VALGUS STABILITY. THERE WAS NO EXCESSIVE ROLL BACK WITH FLEXION. THE TRIAL COMPONENTS WERE REMOVED. THEN A 70 FEMORAL COMPONENT AND 79 TIBIAL COMPONENT WITH A 10 POLYETHYLENE COMPONENT WERE CEMENTED INTO PLACE. ONCE THE CEMENT WAS HARD THE KNEE WAS TAKEN THROUGH A ROM AGAIN AND FOUND TO BE STABLE WITH NO PATELLA TILT NO EXCESSIVE ROLL BACK WITH FLEXION AND GOOD STABILITY WITH COMPLETE AND FULL EXTENSION. THE KNEE WAS IRRIGATED WITH STERILE BETADINE AND WATER FOR ABOUT 3 MINUTES. THE BLEEDERS WERE CAUTERIZED. THE ARTHROTOMY WAS REPAIRED WITH NUMBER 1 VICRYL. THE SUB CUTANEOUS LAYER WITH 2-0 VICRYL AND THE SKIN WITH GURINDER. THE WOUND WAS WASHED AND A STERILE DRESSING WAS APPLIED. PATIENT WAS EXTUBATE D. Estimated Blood Loss -100.0 Pathology None sent Complications No immediate complications Condition Stable Disposition PACU
[2023-05-31] MEDS: fentaNYL CITRATE INJ (*CRX) 100 MCG/2 ML VIAL 25 MCG IV PUSH ×6 (13:49→14:22)
[2023-05-31] MEDS: KETOROLAC 15 MG/ML VIAL (*BKC) IV PUSH (17:39)
[2023-05-31] MEDS: SENNA/DOCUSATE SODIUM TABLET 2 TAB PO (17:40)
[2023-05-31] MEDS: BETAMETHASONE/CLOTRIMAZOLE CR 15 GM TUBE 1 APPLIC TOPICAL (17:41)
[2023-05-31] MEDS: ASPIRIN 325 MG ENTERIC TABLET PO (20:34)
[2023-05-31] MEDS: FAMOTIDINE 20 MG TABLET PO (20:34)
[2023-06-01] MEDS: WATER FOR IRRIGATION, STERILE 1,000 ML BOTTLE 1000 ML
[2023-06-01] MEDS: KETOROLAC 15 MG/ML VIAL (*BKC) IV PUSH ×3 (00:01→11:29)
[2023-06-01 00:44] VITALS: PULSE 66; RESP 20; O2SAT 97
[2023-06-01] MEDS: ceFAZolin 2 GM/D5W 50 ML 2 GM/50 ML BAG IVPB ×2 (02:26→11:30)
[2023-06-01 04:23] VITALS: BP 121/79; PULSE 57; RESP 16; TEMP 36.4; O2SAT 99
[2023-06-01 06:44] LABS: Basophils Percent Auto 0.1 % (0.2-1.2); Hematocrit 36.6 % (42.0-52.0); Hemoglobin 12.5 g/dL (14.0-18.0); Immature Granulocyte Absolute 0.06 K/mm3 (0.00-0.031); Immature Granulocyte Percent A 0.4 % (0-0.5); Lymphocytes Absolute Auto 0.85 K/mm3 (0.9-3.2); Lymphocytes Percent Auto 6.3 % (18.3-44.2); Mean Corpuscular HGB Conc 34.2 g/dl (32-36); Mean Corpuscular Hemoglobin 29.8 pg (26-34); Mean Corpuscular Volume 87.1 fl (80-100); Mean Platelet Volume 9.2 fl (7.4-10.4); Monocytes Absolute Auto 0.8 K/mm3 (0.1-0.6); Neutrophils Absolute Auto 11.8 K/mm3 (1.3-6.7); Neutrophils Percent Auto 87.2 % (45.5-73.1); Platelet Count Result 186 k/mm3 (150-375); Red Cell Distribution Width 12.9 % (11.5-14.5); White Blood Count 13.6 K/mm3 (4.5-10.0)
[2023-06-01 06:58] LABS: Anion Gap 7 mmol/L (8-16); Blood Urea Nitrogen 16 mg/dL (9-20); Calcium 8.8 mg/dL (8.4-10.2); Carbon Dioxide 25 mmol/L (22-30); Chloride 103 mmol/L (98-107); Estimated CRCL calculation 87 ml/min; Estimated Glomerular Filt Rate > 60; Glucose 110 mg/dL (65-110); Potassium 3.9 mmol/L (3.4-5.0); Sodium 135 mmol/L (137-145)
[2023-06-01 08:00] VITALS: PULSE 57; RESP 16; O2SAT 99
[2023-06-01] MEDS: ASPIRIN 325 MG ENTERIC TABLET PO (10:14)
[2023-06-01] MEDS: SENNA/DOCUSATE SODIUM TABLET 2 TAB PO (10:14)
[2023-06-01] MEDS: BETAMETHASONE/CLOTRIMAZOLE CR 15 GM TUBE 1 APPLIC TOPICAL (10:14)
[2023-06-01] MEDS: FAMOTIDINE 20 MG TABLET PO (10:14)
[2023-06-01 13:29] VITALS: BP 107/65; PULSE 54; RESP 16; TEMP 36.6; O2SAT 96
--- NOTE | 2023-06-01 13:54 | P.PNAN_ITS ---
Anes - Prog Note Post-Op Date/Time: 06/01/23 13:54 Cardiovascular status: normal Respiratory status: normal Airway patency: baseline Mental status: baseline Post-Op hydration status: normal Vital Signs: Last Vital Signs Temp 97.6 F 06/01/23 04:23 Pulse 57 L 06/01/23 08:00 Resp 16 06/01/23 08:00 BP 121/79 06/01/23 04:23 Pulse Ox 99 06/01/23 08:00 O2 Del Method Autopap 06/01/23 08:00 O2 Flow Rate 2 05/31/23 14:20 Pain Score (VAS): 3 I/O: Intake & Output 05/31/23 06/01/23 06/01/23 23:59 07:59 15:59 Intake Total 450 600 460 Balance 450 600 460 Laboratory Tests 06/01/23 06:18 06/01/23 06:18 06/01/23 06:18 WBC 13.6 H RBC 4.20 L Hgb 12.5 L Hct 36.6 L MCV 87.1 MCH 29.8 MCHC 34.2 RDW 12.9 Plt Count 186 MPV 9.2 Immature Gran % (Auto) 0.4 Neut % (Auto) 87.2 H Lymph % (Auto) 6.3 L [place] % (Auto) 6.0 Eos % (Auto) 0.0 Baso % (Auto) 0.1 L Lymph # (Auto) 0.85 L [place] # (Auto) 0.8 H Eos # (Auto) 0.0 Baso # (Auto) 0.0 Abs Immat Gran (auto) 0.06 H Absolute Neuts (auto) 11.8 H Absolute Nucleated RBC 0.0 Nucleated RBC % 0.0 Sodium 135 L Potassium 3.9 Chloride 103 Carbon Dioxide 25 Anion Gap 7 L BUN 16 Creatinine 0.80 Estim Creat Clear Calc 87 Estimated GFR > 60 Glucose 110 Calcium 8.8 Post-procedural complaints: none Patient Feedback: Patient satisfied with anesthetic care.PNB continues to provide pain relief. pt complains of tournequet pain at this time
--- NOTE | 2023-06-01 14:19 | PM.PNORT ---
Progress Note: A&P Assessment and Plan (1) Left knee DJD: Qualifiers: Osteoarthritis type: primary Qualified Code(s): M17.12 - Unilateral primary osteoarthritis, left knee Code(s): M17.12 - Unilateral primary osteoarthritis, left knee Status: Acute Assessment and Plan: POD 1 DOING WELL WITH GOOD PROGRESS. OK TO DC HOME F/U IN 3 WEEKS. Subjective Subjective Date/Time Seen: 06/01/23 14:19 Interval history: POD 1 DOING WELL, NO CALF PAIN. GOOD PROGRESS WITH PT Exam Extrem: Other: VSS AFEBRILE DRESSING DRY NV INTACT NEG HOMANS SIGN CALF AND THIGH SOFT NON TENDER Objective Data Vital Signs Vital Signs: Vital Signs - 24 hr 05/31/23 14:20 05/31/23 14:40 05/31/23 15:10 Temperature Pulse Rate 72 70 70 Respiratory Rate 16 20 20 Blood Pressure 138/70 133/65 140/71 Pulse Oximetry 99 95 Oxygen Delivery Nasal Cannula Room Air Room Air Oxygen Flow Rate 2 05/31/23 15:40 05/31/23 15:01 05/31/23 16:45 Temperature Pulse Rate 65 Respiratory Rate 20 Blood Pressure 138/72 Pulse Oximetry Oxygen Delivery Room Air Room Air Room Air Oxygen Flow Rate 05/31/23 15:44 05/31/23 15:59 05/31/23 16:29 Temperature 36.4 C 36.4 C 36.3 C L Pulse Rate 89 72 80 Respiratory Rate 16 16 16 Blood Pressure 130/85 142/86 H 132/86 Pulse Oximetry 97 98 99 Oxygen Delivery Oxygen Flow Rate 05/31/23 17:29 05/31/23 20:32 05/31/23 23:20 Temperature 36.2 C L 36.2 C L Pulse Rate 75 85 67 Respiratory Rate 16 18 21 H Blood Pressure 161/87 H 126/79 Pulse Oximetry 97 100 97 Oxygen Delivery Autopap Oxygen Flow Rate 05/31/23 23:47 06/01/23 00:44 06/01/23 04:23 Temperature 36.6 C 36.4 C Pulse Rate 64 66 57 L Respiratory Rate 16 20 16 Blood Pressure 132/83 121/79 Pulse Oximetry 95 97 99 Oxygen Delivery Autopap Oxygen Flow Rate 06/01/23 08:00 06/01/23 13:29 Temperature 36.6 C Pulse Rate 57 L 54 L Respiratory Rate 16 16 Blood Pressure 107/65 Pulse Oximetry 99 96 Oxygen Delivery Autopap Oxygen Flow Rate Intake/Output Intake/Output: Intake & Output 05/29/23 05/30/23 05/31/23 06/01/23 23:59 23:59 23:59 23:59 Intake Total 1200 1060 Balance 1200 1060 Meds/Results Medications: Active Medications Generic Name Dose Route Start Last Admin Trade Name Freq PRN Reason Stop Dose Admin Acetaminophen 1,000 mg 05/31/23 15:44 Acetaminophen 500 Mg Tablet PO Q6H PRN Pain Rated 1-3 Aspirin 325 mg 05/31/23 21:00 06/01/23 10:14 Aspirin 325 Mg Enteric Tablet PO 325 mg Q12HR JEAN Administration Clobetasol Propionate 1 applic 05/31/23 15:44 Clobetasol Propionate 0.05% Oint 30 Gm TOPICAL BID PRN Rash Clotrimazole 1 applic 05/31/23 17:00 06/01/23 10:14 Betamethasone/Clotrimazole Cr 15 Gm Tube TOPICAL 1 applic BID JEAN Administration Diazepam 5 mg 05/31/23 15:44 Diazepam (*Crx) 5 Mg Tablet PO Q8H PRN Spasms Diphenhydramine HCl 25 mg 05/31/23 15:44 Diphenhydramine Hcl Inj 50 Mg/Ml Vial IV PUSH Q6H PRN Itching Docusate Sodium 100 mg 05/31/23 17:00 Docusate Sodium 100 Mg Capsule PO BID JEAN Famotidine 20 mg 05/31/23 21:00 06/01/23 10:14 Famotidine 20 Mg Tablet PO 20 mg Q12HR JEAN Administration Ketorolac Tromethamine 15 mg 05/31/23 18:00 06/01/23 11:29 Ketorolac 15 Mg/Ml Vial (*Bkc) IV PUSH 06/01/23 18:01 15 mg Q6HR JEAN Administration Naloxone HCl 0.1 mg 05/31/23 15:44 Naloxone Hcl 0.4 Mg/Ml Vial IV PUSH Q2M PRN Opiate Reversal Ondansetron HCl 4 mg 05/31/23 15:44 Ondansetron Inj 4 Mg/2 Ml Vial IV PUSH Q4H PRN Nausea And Vomiting Oxycodone/Acetaminophen 1 tablet 05/31/23 15:44 Oxycodone/Acetaminophen (*Crx) 5-325 Mg Tablet PO Q4H PRN Pain Rated 4-6 Oxycodone/Acetaminophen 2 tablet 05/31/23 15:44 Oxycodone/Acetaminophen (*Crx) 5-325 Mg Tablet PO Q6H PRN Pain
--- NOTE | 2023-06-01 14:22 | P.DS_ITS ---
DS: Admitting Diagnosis Discharge Date 06/01/23 Admitting Diagnosis LEFT KNEE DJD DS: Discharge Diagnosis Discharge Diagnosis (1) Left knee DJD: Qualifiers: Osteoarthritis type: primary Qualified Code(s): M17.12 - Unilateral primary osteoarthritis, left knee Code(s): M17.12 - Unilateral primary osteoarthritis, left knee Status: Acute Plan LEFT KNEE DJD DS: Summary Hospital Course Reason for hospitalization: LEFT TKA Hospital Course: PATIENT WAS ADMITTED S/P TOTAL KNEE ARTHROPLASTY FOR POSTOPERATIVE MEDICAL MANAGEMENT, PAIN CONTROL AND MOBILIZATION WITH PHYSICAL AND OCCUPATIONAL THERAPY. THE PATIENT PROGRESSED WELL WITH PT/OT. LABS AND VITALS REMAINED STABLE AND PAIN WELL CONTROLLED. THE PATIENT HAS BEEN CLEARED TO BE DISCHARGED HOME. FOLLOW UP APPOINTMENT SCHEDULED. DISCHARGE INSTRUCTIONS DISCUSSED AT LENGTH WITH THE PATIENT. MEDICATIONS REVIEWED. Status at Discharge Cognitive/behavioral status at discharge: STABLE Time Spent with Patient Time attestation: Total time spent providing and/or coordinating discharge services: DS: Data Data Completed and Pending Labs on day of discharge: Labs from last 24 hours 06/01/23 06:18 WBC 13.6 H RBC 4.20 L Hgb 12.5 L Hct 36.6 L MCV 87.1 MCH 29.8 MCHC 34.2 RDW 12.9 Plt Count 186 MPV 9.2 Immature Gran % (Auto) 0.4 Neut % (Auto) 87.2 H Lymph % (Auto) 6.3 L [place] % (Auto) 6.0 Eos % (Auto) 0.0 Baso % (Auto) 0.1 L Lymph # (Auto) 0.85 L [place] # (Auto) 0.8 H Eos # (Auto) 0.0 Baso # (Auto) 0.0 Abs Immat Gran (auto) 0.06 H Absolute Neuts (auto) 11.8 H Absolute Nucleated RBC 0.0 Nucleated RBC % 0.0 Sodium 135 L Potassium 3.9 Chloride 103 Carbon Dioxide 25 Anion Gap 7 L BUN 16 Creatinine 0.80 Estim Creat Clear Calc 87 Estimated GFR > 60 Glucose 110 Calcium 8.8 Discharge Plan Discharge Patient Disposition: Home Health Service Discharge Instructions: [facility] arranged for RN, PT/OT evaluations and treatment. [facility] plans for first visit to be , 06/02/23. They will contact you to confirm. [facility] contact number is [phone]. Patient Instructions: Antibiotic Form Stand Alone Forms: General Discharge Information Follow-up/Referrals: Joby Benavidez MD [Physician] - 3 Weeks Discharge Medications: New oxycodone-acetaminophen [Percocet] 5-325 mg tablet 1 tablet PO Q6H PRN (Reason: pain) Qty: 30 0RF Continued docusate sodium [Colace] 100 mg capsule 100 mg PO BID Qty: 30 3RF clotrimazole-betamethasone 1-0.05 % cream 1 applic topical BID Qty: 15 0RF Rx Instructions: Apply to right knee clobetasol 0.05 % ointment 1 applic TOPICAL BID PRN (Reason: Rash) Hold Instructions: .Provider Order Patient Comments: USES PRN FOR RASH Rx Instructions: Use for two weeks at a time
== END 2023-06-01 15:01 | disposition home health service (06) ==
LOC: ANHSURGERY 08:42 → ANH3MEDSUR 15:54
PROVIDERS: PCP Family Medicine; Visit Provider Orthopaedic Surgery
PROC: (CPT 27447; principal; 2023-05-31 11:00)
DX: M17.12 Unilateral primary osteoarthritis, left knee (principal); G89.18 Other acute postprocedural pain; G47.33 Obstructive sleep apnea (adult) (pediatric); B37.2 Candidiasis of skin and nail; Z90.5 Acquired absence of kidney; Z90.79 Acquired absence of other genital organ(s); Z87.891 Personal history of nicotine dependence; E66.9 Obesity, unspecified; Z68.37 Body mass index [BMI] 37.0-37.9, adult
CPT/HCPCS: 27447; 64447; 36415; 73560; 80048; 80307; 81001; 82040; 83036; 85025; 85610; 85730; 86850; 86860; 86870; 86880; 86900; 86901; 86978; 87081; 97110; 97116; 97161; 97165; 97530; 97535; A9270; C1713; C1776; J0171; J0690; J1100; J1170; J1885; J2250; J2270; J2405; J2704; J2795; J3010; J3370; J7120

== ENCOUNTER 2023-06-07 11:34 | Outpatient (CLI) | payer OTHER, SELFPAY ==
--- NOTE | ~2023-06-07 | US_ITS ---
EXAMINATION: US venous doppler [facility] DATE: 06/07/2023 12:51 INDICATION: Lower limb pain TECHNIQUE: Ochoa scale images without and with compression and Doppler images of the bilateral lower e xtremity veins were obtained. COMPARISON: None FINDINGS: The right common femoral vein, profunda femoral vein, femoral vein, popliteal vein, peroneal trunk, p osterior tibial veins, and greater saphenous vein are patent. The left common femoral vein, profunda femoral vein, femoral vein, popliteal vein, peroneal trunk, po sterior tibial veins, and greater saphenous vein are patent. IMPRESSION: 1. Patent bilateral lower extremity veins. No evidence of deep venous thrombosis. Reviewed, dictated and finalized at location L. D ASSESSOR IMPRESSION: 1. Patent bilateral lower extremity veins. No evidence of deep venous thrombosi s.
== END 2023-06-07 11:35 | disposition home or self-care (01) ==
PROVIDERS: PCP Family Medicine; Visit Provider Orthopaedic Surgery
DX: M79.662 Pain in left lower leg (principal)
CPT/HCPCS: 93970

== ENCOUNTER 2023-08-17 07:30 | Outpatient (RCR) | payer OTHER, SELFPAY ==
--- NOTE | 2023-06-22 08:17 | PTOPEVAL1 ---
Assessment and note entered by Jun Galdamez Evaluation Information Assessment Status Evaluation Diagnosis left TKA Onset 05/31/23 Subjective Information Pt. reports that he underwent left TKA on 05/31/23. Pt. reports that he has been participating in home health therapy since surgery. He reports he was discharged last week. He states that he is still using a walker for ambulation. He states that he has not returned to driving. He underwent right TKA in January and it is doing well. He reports that stiffness in the left knee is his biggest complication. He states that he has not taken pain medication since . He reports that pain does affect his sleep on occasion. He reports that prior to surgery he was able to complete all ADL's and IADL's without assistance and was driving. He reports that his goal is to return to walking normally without an AD. Reported Pain Level Pain Score 2: Self Report Assessment PT Clinical Summary Pt. is a 67 year old male who enters the clinic 3 weeks post left TKA. He presents with notable edema, impaired ROM, impaired gait, impaired l.e. strength and functional decline. Continued skilled PT is indicated in order to improve these areas to allow pt. to achieve his goal of establishing normal gait. Plan of Care Interventions Gait Training,Hot Pack/Cold Pack,Intermittent Compression,Manual Therapy,Neuro Re-education, Therapeutic Activities,Therapeutic Exercise PT Services Indicated Yes Treatment Frequency and 2x/week 10 visits Duration These treatments will address the objective and functional deficits as defined above. The patient will be advanced safely and appropriately in order for the patient to progress towards his/her prior level of function. Additional exercises will be introduced and as well as a comprehensive home exercise program upon discharge, if needed, ?to ensure carryover of functional gains achieved in the clinic. This treatment plan has been reviewed and agreement upon by the patient.
--- NOTE | 2023-07-18 08:49 | PCPTNOTE ---
cancelled due to weather
--- NOTE | 2023-07-20 08:15 | PTOPPROG ---
Assessment and note entered by Jun Galdamez Evaluation Information Assessment Status Progress Diagnosis left TKA Onset 05/31/23 Subjective Information Pt. reports that he is pleased with the progress of his left knee. He states that he continues to exercise regularly at home. He reports that he still has a dull ache in the knee, but better than prior to surgery. He states that he is still noticing stiffness in the left knee. He reports that he would like to continue with treatment focusing on ROM and continued strength deficits. Assessment PT Clinical Summary Pt. has attended a total of 9 treatment sessions consisting of therapeutic exercise to improve strength and ROM, therapeutic activities to improve function and modalities to reduce edema and pain. Pt. has demonstrated excellent progress in regards to strength, mobility and gait. Despite the objective progress deficits still remain. At this time recommend continued skilled PT at a decreased frequency in order to optimize strength and mobility and to continue to assist with edema reduction to allow for optimal function . Plan of Care Interventions Gait Training,Intermittent Compression,Manual Therapy,Neuro Re-education,Patient/Caregiver Education,Therapeutic Activities,Therapeutic Exercise PT Services Indicated Yes Treatment Frequency and 1x/week x 4 visits Duration These treatments will address the objective and functional deficits as defined above. The patient will be advanced safely and appropriately in order for the patient to progress towards his/her prior level of function. Additional exercises will be introduced and as well as a comprehensive home exercise program upon discharge, if needed, ?to ensure carryover of functional gains achieved in the clinic. This treatment plan has been reviewed and agreement upon by the patient.
--- NOTE | 2023-07-27 08:04 | PCPTNOTE ---
Pt. called and cancelled his appointment this morning due to having increased right knee pain and left knee pain at night. He will return next week.
--- NOTE | 2023-08-17 08:23 | PTOPDC ---
Assessment and note entered by Jun Galdamez Discharge Information Assessment Status Discharge Diagnosis left TKA Onset 05/31/23 Subjective Information Pt. reports that he was able to play golf last week. He reports that he is no longer having pain at the left knee. He states that he is continuing to exercise at home. He states that he is walking without a cane. He has returned to all normal activities. He states that he is ready for discharge at this time. Reported Pain Level Pain Score 0: Self Report Assessment PT Clinical Summary Pt. has met the majority of goals established at the initial evaluation. He still has some slight restriction in flexion ROM, however it is comparable to the range of motion at the right knee and he demonstrates no significant functional limitations. He is encouraged to continue with his HEP and will be discharged from our care at this time. Plan of Care PT Services Indicated D/C from PT to an independent HEP.
== END 2023-08-17 10:05 | disposition home or self-care (01) ==
LOC: ANHPT 07:30
PROVIDERS: PCP Family Medicine; Visit Provider Orthopaedic Surgery
DX: Z47.1 Aftercare following joint replacement surgery (principal); Z96.653 Presence of artificial knee joint, bilateral
CPT/HCPCS: 97016; 97110; 97116; 97140; 97161; 97530

== ENCOUNTER 2023-10-14 00:32 | Day surgery (SDC) | payer OTHER, SELFPAY ==
[2023-10-05 09:27] VITALS: BMI 36.3
[2023-10-14 06:51] VITALS: BP 138/86; PULSE 53; RESP 18; TEMP 36.1; O2SAT 99
[2023-10-14] MEDS: LACTATED RINGERS 1,000 ML 150 ML IV CONT (06:59)
--- NOTE | 2023-10-14 07:54 | P.PNAN_ITS ---
Anes - Initial Pre Proc Eval Procedure: Operation Date: 10/14/23 08:00 Proposed Procedures p Colonoscopy - Surinder Obando MD Date/Time: 10/14/23 07:54 Surgeon: Surinder Obando MD Pre Op Diagnosis: hx colon polyps Patient Data Age: 68 Gender: M Height: 1.68 m Weight: 102.8 kg Last Vital Signs Temp 97 F L 10/14/23 06:51 Pulse 53 L 10/14/23 06:51 Resp 18 10/14/23 06:51 BP 138/86 10/14/23 06:51 Pulse Ox 99 10/14/23 06:51 O2 Del Method Room Air 10/14/23 06:51 Allergies Allergy/AdvReac Type Severity Reaction Status Date / Time No Known Allergies Allergy Mild Verified 10/14/23 06:48 Home Medications Medication Instructions Recorded Confirmed Type clobetasol 0.05 % topical ointment 1 applic topical BID PRN Rash 05/17/23 10/05/23 History clotrimazole-betamethasone 1 1 applic topical BID #15 grams 05/26/23 10/05/23 Rx %-0.05 % topical cream docusate sodium 100 mg capsule 100 mg PO BID #30 caps 06/09/23 10/05/23 Rx (Colace) Patient hx anesthesia problems: none Family hx anesthesia problems: none Results Review: All pre-operative results and documents have been reviewed as part of the pre- operative evaluation. 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 Morbid obesity with BMI of 45.0-49.9, adult Obstructive sleep apnea (~2001) Pain of left calf Yeast infection of the skin Surgical History Surgical History H/O lithotripsy H/O radical prostatectomy History of right nephrectomy 2001 S/P total knee arthroplasty Status post total knee replacement, right DOS 02/23/23 Family History Family History Mother Patient's mother is in good health Sibling Patient's sister is in good health Patient's brother is in good health Social History Social History Smoking packs per day: 0.25 Smoking cigarettes per day: 5.0 Years smoked: 15 Smoking pack-years: 3.75 Smoking status: Former smoker Tobacco type: cigarettes Second hand tobacco smoke exposure: No Additional smoking assessment comments: PT DENIES ALL FORMS OF TOBACCO USE Alcohol intake: current Drinks per week: 1 Alcohol use details: 1-2 a week Substance use: never Substance use type: does not use Do You Feel Safe in your Home?: Yes Lack of Transportation: No Lack of Food: Never True Current Housing: I Have Housing Concerned About Future Housing: No Difficulty Paying Gas/Electric Bills: No Difficulty Paying for Meds: No Currently Unemployed: No Education: Associate Degree Difficulty w/ Childcare or Family Care: No Living arrangements: with family Occupation/Education: occupation 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 Informed Consent: The patient's anesthetic plan and its attendant risks and benefits were discussed with the patient/family/POA. Questions were solicited and answers provided to the satisfaction of the patient/family/POA.
--- NOTE | 2023-10-14 07:57 | PM.HPGS ---
History of Present Illness History of Present Illness Consent: Risks, benefits, and alternatives have been discussed and questions answered. Patient agrees to proceed with procedure. 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 Morbid obesity with BMI of 45.0-49.9, adult Obstructive sleep apnea (~2001) Pain of left calf Yeast infection of the skin Surgical History Surgical History H/O lithotripsy H/O radical prostatectomy History of right nephrectomy 2001 S/P total knee arthroplasty Status post total knee replacement, right DOS 02/23/23 Family History Family History Mother Patient's mother is in good health Sibling Patient's sister is in good health Patient's brother is in good health Social History Social History Smoking packs per day: 0.25 Smoking cigarettes per day: 5.0 Years smoked: 15 Smoking pack-years: 3.75 Smoking status: Former smoker Tobacco type: cigarettes Second hand tobacco smoke exposure: No Additional smoking assessment comments: PT DENIES ALL FORMS OF TOBACCO USE Alcohol intake: current Drinks per week: 1 Alcohol use details: 1-2 a week Substance use: never Substance use type: does not use Do You Feel Safe in your Home?: Yes Lack of Transportation: No Lack of Food: Never True Current Housing: I Have Housing Concerned About Future Housing: No Difficulty Paying Gas/Electric Bills: No Difficulty Paying for Meds: No Currently Unemployed: No Education: Associate Degree Difficulty w/ Childcare or Family Care: No Living arrangements: with family Occupation/Education: occupation 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 identity (if 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 patient): Male Spiritual care concerns: No Agree to blood products: Yes Meds Home Medications and Allergies Home Medications Medication Instructions Recorded Confirmed Type clobetasol 0.05 % topical ointment 1 applic topical BID PRN Rash 05/17/23 10/05/23 History clotrimazole-betamethasone 1 1 applic topical BID #15 grams 05/26/23 10/05/23 Rx %-0.05 % topical cream docusate sodium 100 mg capsule 100 mg PO BID #30 caps 06/09/23 10/05/23 Rx (Colace) Allergies Allergy/AdvReac Type Severity Reaction Status Date / Time No Known Allergies Allergy Mild Verified 10/14/23 06:48 Vital Signs Vital Signs - 24 hr 10/14/23 06:51 Temperature 97 F L Pulse Rate 53 L Respiratory Rate 18 Blood Pressure 138/86 Pulse Oximetry 99 Oxygen Delivery Room Air Exam Const: General: comfortable and no acute distress HENMT: Face/Nose/Sinus: Normal nares present Eyes: General: appearance normal, both eyes and all related structures Neck: Neck: no JVD Resp: Auscultation: clear to auscultation bilaterally Cardio: Rate: regular rate Rhythm: regular rhythm GI: Inspection: non-distended GI Palp: Yes Soft to palpation Skin: General skin exam: normal color Neuro: General: gait normal Speech: normal speech Extrem: General: normal to inspection Psych: Mental Status: mental status grossly normal Assessment and Plan Assessment and plan (1) Personal history of colonic polyps: Code(s): Z86.010 - Personal history of colonic polyps Status: Acute Assessment and Plan: colonoscopy
[2023-10-14 08:18] VITALS: BP 115/72; PULSE 58; RESP 28; O2SAT 100
[2023-10-14 08:28] VITALS: BP 118/72; PULSE 57; RESP 18; O2SAT 99
[2023-10-14 08:38] VITALS: BP 127/67; PULSE 55; RESP 17; O2SAT 100
== END 2023-10-14 08:40 | disposition home or self-care (01) ==
PROVIDERS: PCP Family Medicine; Visit Provider Internal Medicine Gastroenterology
PROC: 0DJD8ZZ Inspection of Lower Intestinal Tract, Via Natural or Artificial Opening Endoscopic (ICD-10-PCS; CPT 45378; principal; 2023-10-14 08:00)
DX: Z12.11 Encounter for screening for malignant neoplasm of colon (principal); D12.0 Benign neoplasm of cecum; K57.30 Diverticulosis of large intestine without perforation or abscess without bleeding; K64.8 Other hemorrhoids; Z90.5 Acquired absence of kidney; Z87.891 Personal history of nicotine dependence; E66.9 Obesity, unspecified; Z68.36 Body mass index [BMI] 36.0-36.9, adult
CPT/HCPCS: 45385; 88305; J7120

== ENCOUNTER 2024-02-21 10:45 | Outpatient (CLI) | payer OTHER, SELFPAY ==
--- NOTE | 2024-02-21 10:51 | ECG_ITS ---
Test Date: 2024-02-21 11:05:45 Measurements Intervals [place] Rate: 57 P: 35 TN: 235 QRS: -75 QRSD: 160 T: -21 QT: 452 QTc: 441 Interpretive Statements SINUS BRADYCARDIA WITH FIRST DEGREE AV BLOCK WITH OCCASIONAL SUPRAVENTRICULAR PREMATURE COMPLEXES RIGHT BUNDLE BRANCH BLOCK [120+ ms QRS DURATION, UPRIGHT V1, 40+ ms S IN I/aVL/V4/V5/V6] LEFT ANTERIOR FASCICULAR BLOCK [QRS AXIS <= -45, QR IN I, RS IN II] No previous ECG available for comparison Electronically Signed On 02-21-2024 16:14:54 CDT by Israel Kuo M.D.
== END 2024-02-21 10:46 | disposition home or self-care (01) ==
PROVIDERS: PCP Family Medicine; Visit Provider Family Medicine
DX: R00.1 Bradycardia, unspecified (principal); I45.2 Bifascicular block; I44.0 Atrioventricular block, first degree
CPT/HCPCS: 93005

== ENCOUNTER 2024-02-29 13:41 | Outpatient (CLI) | payer OTHER, SELFPAY ==
--- NOTE | ~2024-02-29 | CT_ITS ---
EXAMINATION: CT abdomen pelvis wo/w con DATE: 02/29/2024 14:39 INDICATION: Gross hematuria. TECHNIQUE: Computed tomography (CT) of the abdomen and pelvis was performed without and with intraven ous contrast using a total of 130 mL Omnipaque-350 intravenous contrast with a double-bolus technique for simultaneous opacification of the renal parenchyma and renal collecting system. Automated exposu re control and iterative reconstruction technique were employed. The dose-length product was 2985.41 mGy-cm. COMPARISON: CT abdomen and pelvis 10/09/2021 FINDINGS: The visualized portions of the lung bases demonstrate mild atelectasis. There are calcified pleural p laques bilaterally, which may be seen with asbestos exposure. No pleural effusion. The heart size is normal. There are coronary artery calcifications. No pericardial effusion. The liver, gallbladder, sp marco, pancreas, and adrenal glands are normal. There are changes of right nephrectomy. There are cyst s in left kidney measuring up to 8 mm. There are 3 stones in left kidney measuring up to 9 mm. Left u reter is not well opacified distally, but is normal. The bladder is not well distended. There are jcarlos nges of prostatectomy. There is diverticulosis of the colon without evidence of diverticulitis. There are no dilated loops of bowel. There are no pathologically enlarged lymph nodes. There is no free in traperitoneal fluid. There is mild thoracic and lumbar spondylosis. There are bridging endplate osteo phytes at multiple levels in the thoracic spine, consistent with diffuse idiopathic skeletal hyperost osis (DISH). IMPRESSION: 1. Nonobstructing left kidney stones. 2. Right nephrectomy. Reviewed, dictated and finalized at location A.
--- NOTE | ~2024-02-29 | XR_ITS ---
XR abdomen/kub 1V 02/29/2024 14:25 Indication: Gross hematuria Procedure: KUB Comparison: CT dated 10/09/2021 Findings: Bowel gas pattern is nonobstructive. There are left renal stones at the lower pole. There s urgical clips in the right abdomen consistent with prior nephrectomy. Bowel gas pattern nonobstructiv e. Moderate lumbar spondylosis. Impression: 1: Left nephrolithiasis. 2: Status post right nephrectomy. Reviewed, dictated and finalized at location B. Impression: 1: Left nephrolithiasis. 2: Status post right nephrectomy.
[2024-02-29 14:13] LABS: Estimated Glomerular Filt Rate > 60
== END 2024-02-29 13:42 | disposition home or self-care (01) ==
PROVIDERS: PCP Family Medicine; Visit Provider Urology
DX: R31.0 Gross hematuria (principal); N20.0 Calculus of kidney; Z90.5 Acquired absence of kidney
CPT/HCPCS: 74018; 74178; Q9967

== ENCOUNTER 2024-03-22 08:52 | Outpatient (CLI) | payer OTHER, SELFPAY ==
[2024-03-22 09:26] LABS: INR 1.1; Prothrombin Time 14.7 Seconds (11.1-14.7)
[2024-03-22 09:27] LABS: Partial Thromboplastin Time 32.6 Seconds (22.3-36.8)
== END 2024-03-22 08:53 | disposition home or self-care (01) ==
LOC: ANHSURGERY 08:55
PROVIDERS: PCP Family Medicine; Visit Provider Urology
DX: Z01.812 Encounter for preprocedural laboratory examination (principal); N20.0 Calculus of kidney
CPT/HCPCS: 36415; 85610; 85730; 87086

== ENCOUNTER 2024-03-30 04:07 | Day surgery (SDC) | payer OTHER, SELFPAY ==
[2024-03-19 14:45] VITALS: BMI 36.3
--- NOTE | 2024-03-19 15:04 | PC.NURSE ---
Report to the Outpatient Waiting Room, entrance under the green pavilion located off [facility], at time _07:00am__on date _03/30/24 . Planned Procedure Time: ___09:00am .? Time changes happen often and if your time is changed the preop area will call you the afternoon before. - You and your visitor will be asked to self-screen and do not enter if you have any COVID symptoms. Please call surgeon if you need to reschedule. - A mask is optional within the hospital at this time. Patients may have clear liquids (water, carbonated beverages, clear teas, apple juice) until 3 hours prior to surgery with a maximum of 20 ounces. - No food from midnight until time of surgery and no smoking ( 0600am) Take only the following medications with a SIP of water on the morning of surgery: __None DO NOT STOP ANY OF YOUR OTHER PRESCRIPTION MEDICATIONS PRIOR TO SURGERY EXCEPT THE FOLLOWING Medications to discontinue per physician None Date to take last dose None Please no make-up, nail maldivian, hairspray, perfume, deodorant, or body powder the day of surgery.? No jewelry (including any body piercings) or valuables the day of surgery, leave them at home.? Please take a shower or bath the night before, or the morning of, surgery with an antibacterial soap.? Wear comfortable, loose fitting clothing.? - Jewelry must be removed prior to entering the operating room.? Rings and piercings that are not removed may be cut off. - The hospital will not accept responsibility for valuables.? - Please leave all valuables, including medications, at home the day of surgery. If you are going home after surgery, a licensed dray driver must drive you home.? - NO public transportation without another adult if you receive anesthesia. - We recommend that an adult stay with you for 24 hours following discharge. - We also recommend that you do not drive, make important decision, drink alcoholic beverages, or take any drugs that were not prescribed by your health care provider for at least 24 hours after your discharge time. Follow any additional instructions given to you from your surgeon. Telephone instructions given to _Patient and asked if any additional questions and then verbalized understanding. Patient advised to call surgeon office or pre surgery nurse liaison [phone] if any additional questions.
--- NOTE | 2024-03-20 07:29 | PM.HPGS ---
History of Present Illness History of Present Illness Consent: Risks, benefits, and alternatives have been discussed and questions answered. Patient agrees to proceed with procedure. Chief complaint: Lt Kidney Stone, Gross Hematuria Narrative: Macario Martin is a 68 year old male who is status post robotic prostatectomy in the past. He recently had an episode of hematuria. CT imaging demonstrated 3 stones in his left kidney. After discussion of options he is elected for left ESWL with simultaneous cystoscopy. 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 Morbid obesity with BMI of 45.0-49.9, adult Obstructive sleep apnea (~2001) Pain of left calf Yeast infection of the skin Surgical History Surgical History H/O lithotripsy H/O radical prostatectomy History of right nephrectomy 2001 S/P total knee arthroplasty Status post total knee replacement, right DOS 02/23/23 Family History Family History Mother Patient's mother is in good health Sibling Patient's sister is in good health Patient's brother is in good health Social History Social History Smoking packs per day: 0.25 Smoking cigarettes per day: 5.0 Years smoked: 25 Smoking pack-years: 6.25 Smoking status: Former smoker Tobacco type: cigarettes Second hand tobacco smoke exposure: No Smoking end date: 06/27/79 Additional smoking assessment comments: PT DENIES ALL FORMS OF TOBACCO USE Alcohol intake: current Drinks per week: 2 Alcohol use details: 1-2 a week Substance use: never Substance use type: does not use Do You Feel Safe in your Home?: Yes Lack of Transportation: No Lack of Food: Never True Current Housing: I Have Housing Concerned About Future Housing: No Difficulty Paying Gas/Electric Bills: No Difficulty Paying for Meds: No Currently Unemployed: No Education: Associate Degree Difficulty w/ Childcare or Family Care: No Living arrangements: with family Additional living arrangements comments: Occupation/Education: occupation 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 identity (if 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 patient): Male Spiritual care concerns: No Agree to blood products: Yes Meds Home Medications and Allergies Home Medications Medication Instructions Recorded Confirmed Type clobetasol 0.05 % topical ointment 1 applic topical BID PRN Rash 05/17/23 03/19/24 History clotrimazole-betamethasone 1 1 applic topical BID #15 grams 05/26/23 03/19/24 Rx %-0.05 % topical cream Allergies Allergy/AdvReac Type Severity Reaction Status Date / Time No Known Allergies Allergy Mild Verified 03/19/24 14:44 Exam Const: General: no acute distress Resp: Effort & Inspection: normal respiratory effort GI: Inspection: non-distended GI Palp: No abdominal tenderness and No Guarding due to palpation present (GI) Auscultation: normal bowel sounds Assessment and Plan Assessment and plan (1) Left renal stone: Code(s): N20.0 - Calculus of kidney Status: Acute (2) Gross hematuria: Code(s): R31.0 - Gross hematuria Stat
[2024-03-30] VITALS (7 sets, daily range): BP systolic 120–146; BP diastolic 67–86; PULSE 48–65; RESP 16–27; TEMP 36.2–36.3; O2SAT 99–100
--- NOTE | ~2024-03-30 | XR_ITS ---
Supine and upright views of the abdomen Clinical history: Lithotripsy COMPARISON: 02/29/2024 Findings: Bowel gas pattern is nonspecific. No evidence for obstruction or free air. Left lower pole renal stones are present, measuring 9 and 6 mm in diameter.. Osseous structures are intact. Impression: Left lower pole renal stones, as above. Reviewed, dictated and finalized at [facility]. Impression: Left lower pole renal stones, as above.
--- NOTE | 2024-03-30 06:28 | WPDHPUPDATE1 ---
History and Physical Update Update Date/Time: 03/30/24 06:28 History and Physical has been reviewed, including an updated exam of the patient. There are NO changes in the patient's condition. Risks, benefits, and alternatives have been discussed and questions answered. Patient agrees to proceed with procedure.
[2024-03-30] MEDS: LACTATED RINGERS 1,000 ML 30 ML IV CONT (07:30)
--- NOTE | 2024-03-30 08:22 | WPDANESEPPF ---
Anes - Initial Pre Proc Eval Procedure: Operation Date: 03/30/24 09:00 Proposed Procedures p Left Extracorporeal Shock Wave Lithotripsy - Winston Cardona MD s Flexible Cystoscopy - Winston Cardona MD Date/Time: 03/30/24 08:22 Surgeon: Winston Cardona MD Pre Op Diagnosis: Lt Kidney Stone, Gross Hematuria Patient Data Age: 68 Gender: M Height: 1.68 m Weight: 95.4 kg Last Vital Signs Temp 97.3 F L 03/30/24 07:21 Pulse 51 L 03/30/24 07:21 Resp 20 03/30/24 07:21 BP 135/67 03/30/24 07:21 Pulse Ox 100 03/30/24 07:21 O2 Del Method Room Air 03/30/24 07:21 Allergies Allergy/AdvReac Type Severity Reaction Status Date / Time No Known Allergies Allergy Mild Verified 03/30/24 07:13 Home Medications Medication Instructions Recorded Confirmed Type clobetasol 0.05 % topical ointment 1 applic topical BID PRN Rash 05/17/23 03/19/24 History clotrimazole-betamethasone 1 1 applic topical BID #15 grams 05/26/23 03/19/24 Rx %-0.05 % topical cream Patient hx anesthesia problems: none Family hx anesthesia problems: none Results Review: All pre-operative results and documents have been reviewed as part of the pre-operative evaluation. 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 Morbid obesity with BMI of 45.0-49.9, adult Obstructive sleep apnea (~2001) Pain of left calf Yeast infection of the skin Surgical History Surgical History H/O lithotripsy H/O radical prostatectomy History of right nephrectomy 2001 S/P total knee arthroplasty Status post total knee replacement, right DOS 02/23/23 Family History Family History Mother Patient's mother is in good health Sibling Patient's sister is in good health Patient's brother is in good health Social History Social History Smoking packs per day: 0.25 Smoking cigarettes per day: 5.0 Years smoked: 25 Smoking pack-years: 6.25 Smoking status: Former smoker Tobacco type: cigarettes Second hand tobacco smoke exposure: No Smoking end date: 06/27/79 Additional smoking assessment comments: PT DENIES ALL FORMS OF TOBACCO USE Alcohol intake: current Drinks per week: 2 Alcohol use details: 1-2 a week Substance use: never Substance use type: does not use Do You Feel Safe in your Home?: Yes Lack of Transportation: No Lack of Food: Never True Current Housing: I Have Housing Concerned About Future Housing: No Difficulty Paying Gas/Electric Bills: No Difficulty Paying for Meds: No Currently Unemployed: No Education: Associate Degree Difficulty w/ Childcare or Family Care: No Living arrangements: with family Additional living arrangements comments: Occupation/Education: occupation 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 ) Neurological: alert and oriented Last oral intake: >/= 8 hours ASA classification: III Emergent: no Anesthetic plan: proceed Anesthesia type and monitoring: general LMA and standard monitoring Results Review: All pre-operative results and documents have been reviewed as part of the pre-operative evaluation. Hyperlipidemia, ROSEY on CPAP setting 8. Active w walking 10K steps, no cp or sob, pt does some wts too. Informed Consent: The patient's anesthetic plan and its att
[2024-03-30] MEDS: ceFAZolin 2 GM/D5W 50 ML 2 GM/50 ML BAG IVPB (08:44)
--- NOTE | 2024-03-30 09:25 | W.PM.PROC2 ---
Procedure Note - Detailed Date of Procedure 03/30/24 Pre-op Diagnosis Lt Kidney Stones, Gross Hematuria Post-op Diagnosis Same Procedure Performed Flexible cystoscopy, left ESWL Surgeon Winston Cardona MD Anesthesia General Description of Procedure patient is brought to the op suite was prepped draped in routine sterile fashion while in a supine position after the uneventful induction of a general LMA anesthetic. Cystoscopy was undertaken with a 16 F flexible cystoscope. He has no urethral strictures. There is surgical absence of the prostate. Bladder was normal without mucosal hyperemia or signs of intravesical foreign body neoplasm. He has a single orthotopic ureteral orifice bilaterally. This point the cystoscope was removed and he was repositioned with the focal point of Lithotripter at the 2 left lower calyceal stones. The the larger of these is treated with 1500 shocks at a power setting up to 5. The more lateral, smaller stone is treated with an additional 1000 shocks. There appeared be good fragmentation of stone. The patient tolerated this well was taken recovery room good condition.
== END 2024-03-30 11:01 | disposition home or self-care (01) ==
PROVIDERS: PCP Family Medicine; Visit Provider Urology
PROC: (CPT 50590; principal; 2024-03-30 09:00)
PROC: 0TJB8ZZ Inspection of Bladder, Via Natural or Artificial Opening Endoscopic (ICD-10-PCS; CPT 52000; 2024-03-30 09:00)
DX: N20.0 Calculus of kidney (principal); R31.0 Gross hematuria; E78.5 Hyperlipidemia, unspecified; M17.12 Unilateral primary osteoarthritis, left knee; G47.33 Obstructive sleep apnea (adult) (pediatric); E66.9 Obesity, unspecified; Z68.33 Body mass index [BMI] 33.0-33.9, adult; Z98.890 Other specified postprocedural states; Z90.5 Acquired absence of kidney; Z87.891 Personal history of nicotine dependence
CPT/HCPCS: 50590; 52000; 36415; 74018; 85610; 85730; 87086; J0690; J1596; J2003; J2405; J2704; J3010; J7120

== ENCOUNTER 2024-04-09 08:03 | Outpatient (CLI) | payer OTHER, SELFPAY ==
--- NOTE | ~2024-04-09 | XR_ITS ---
XR abdomen/kub 1V Ordering provider: Winston Cardona MD History: . N20.0 - Calculus of kidney . Comparison: None. FINDINGS: BOWEL: Nonobstructive bowel gas pattern. ORGANOMEGALY: None. SIGNIFICANT PATHOLOGIC CALCIFICATIONS: . Calcification seen in the left side above the iliac bone is most likely outside the kidney. CT is advised. OTHER: Postoperative changes in the right renal area. No free air is seen under the diaphragm. IMPRESSION: NO ACUTE ABDOMINAL FINDINGS. Calcification seen in the area above the left iliac bone which may be kidney stone. noncontrast CT is advised. Reviewed, dictated and finalized at location A. IMPRESSION: NO ACUTE ABDOMINAL FINDINGS. Calcification seen in the area above the left iliac bone which may be kidney st one. noncontrast CT is advised.
== END 2024-04-09 08:04 | disposition home or self-care (01) ==
PROVIDERS: PCP Family Medicine; Visit Provider Urology
DX: N20.0 Calculus of kidney (principal)
CPT/HCPCS: 74018

== ENCOUNTER 2024-10-09 10:19 | Outpatient (CLI) | payer OTHER, SELFPAY ==
--- NOTE | ~2024-10-09 | XR_ITS ---
Supine and upright views of the abdomen Clinical history: Renal stone COMPARISON: 04/09/2024 Findings: Bowel gas pattern is nonspecific. No evidence for obstruction or free air. Possible left lo wer pole renal stones measuring up to 12 mm versus possibly bowel contents. Osseous structures are in tact. Impression: Suspected left lower pole renal stones measuring up to 12 mm versus possibly bowel contents. Reviewed, dictated and finalized at location . Impression: Suspected left lower pole renal stones measuring up to 12 mm versus possibly onur wel contents.
== END 2024-10-09 10:20 | disposition home or self-care (01) ==
LOC: MICIMG 10:20
PROVIDERS: PCP Urology; Visit Provider Urology
DX: N20.0 Calculus of kidney (principal)
CPT/HCPCS: 74018

== ENCOUNTER 2025-03-18 08:18 | Outpatient (CLI) | payer OTHER, SELFPAY ==
--- NOTE | ~2025-03-18 | US_ITS ---
EXAMINATION: US aorta [facility] scr[facility] DATE: 03/18/2025 19:27 CDT INDICATION: History of nicotine dependence. Obesity. High cholesterol. TECHNIQUE: Grayscale, color Doppler, and pulsed Doppler images of the aorta and common iliac arteries were obtained. COMPARISON: None. FINDINGS: The proximal aorta measures 2.6 cm greatest sagittal dimension. The mid aorta measures 2.1 cm greatest sagittal dimension. The distal aorta measures 2.1 cm greatest sagittal dimension. The right common internal iliac artery measures 2.1 cm. The left common iliac artery measures 2.2 cm. IMPRESSION: 1. 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 Reviewed, dictated and finalized at location O.
== END 2025-03-18 08:19 | disposition home or self-care (01) ==
LOC: MICIMG 08:19
PROVIDERS: PCP Nurse Practitioner Family; Visit Provider Nurse Practitioner Family
DX: I72.3 Aneurysm of iliac artery (principal); Z87.891 Personal history of nicotine dependence
CPT/HCPCS: 76706

== ENCOUNTER 2025-04-15 10:40 | Outpatient (CLI) | payer OTHER, SELFPAY ==
--- NOTE | ~2025-04-15 | XR_ITS ---
Abdominal radiograph(s) INDICATION: Renal stones COMPARISON: Abdominal x-ray 10/09/2024 TECHNIQUE: 2 views AP abdomen FINDINGS: Left lower pole renal stones as before. Lung bases demonstrate nonspecific interstitial markings. Scattered colonic gas and stool. Small bowel loops not well seen. Surgical clips from right nephrectomy. No acute bony abnormality. IMPRESSION: 1. Left lower pole renal stones persist. Reviewed, dictated and finalized at location R.
== END 2025-04-15 10:41 | disposition home or self-care (01) ==
LOC: MICIMG 10:42
PROVIDERS: PCP Nurse Practitioner Family; Visit Provider Urology
DX: N20.0 Calculus of kidney (principal)
CPT/HCPCS: 74018

== ENCOUNTER 2025-05-14 08:54 | Outpatient (CLI) | payer OTHER, SELFPAY ==
--- NOTE | ~2025-05-14 | CT_ITS ---
EXAMINATION: CT brain wo obdulio, 05/14/2025 9:10 [employer] COMP[employer]ATION [employer]NALYST HISTORY: H53.8 - Other visual disturbances COMPARISON: No comparisons available. Technique: Axial images obtained of the brain without contrast. One or more of the following dose reduction techniques were used: automated exposure control, adjustment of the mA and/or kV according to patient size, use of iterative reconstruction technique. Findings: No acute infarct or parenchymal hemorrhage. No abnormal mass or mass effect. No midline shift. No extra-axial fluid collections. No hydrocephalus. Mastoid air cells unremarkable. Sinuses and orbits unremarkable. No acute fracture. No significant facial or scalp soft tissue swelling evident. No radiopaque foreign body is seen. Impression: 1.No acute intracranial abnormality. Reviewed, dictated and finalized at location P. OR SALES COMPENSATION ANALYST Impression: 1.No acute intracranial abnormality.
== END 2025-05-14 08:55 | disposition home or self-care (01) ==
PROVIDERS: PCP Nurse Practitioner Family; Visit Provider Nurse Practitioner Family
DX: H53.8 Other visual disturbances (principal); R51.9 Headache, unspecified; R20.2 Paresthesia of skin; H55.09 Other forms of nystagmus; R42 Dizziness and giddiness
CPT/HCPCS: 70450